=== PATIENT | female | born 1940 | race Caucasian/White ===

== ENCOUNTER 2016-11-19 15:06 | Inpatient (IN) | payer MEDICARE, OTHER ==
[~2016-11-19] VITALS: Ht 142.2 cm; Wt 84.2 kg
[~2016-11-19 15:06] MED LIST: ASPI1TAB69 PO; CARV3.12 PO; CENTTAB PO; CITA20TA4 PO; CYAN1000P IM; RANI150C PO; ROSU40 PO; SENN8.8L PO; TRIA1CAP6 PO; VITA2000 PO
[2016-11-20] MEDS ORDERED: bipap FM (09:09)
--- NOTE | 2016-11-21 14:54 | MH ---
cc: Bon HOSKINS M.D. DATE OF ADMISSION: 11/24/2016 ADMITTING DIAGNOSIS Osteoarthritic degeneration right hip, now being admitted for right total hip arthroplasty. HISTORY OF PRESENT ILLNESS This pleasant, morbidly obese 76-year-old female is being admitted today for right total hip arthroplasty due to severe painful osteoarthritic degeneration right hip. PAST MEDICAL HISTORY 1. She has already had a left total knee done and did well. 2. History of morbid obesity for which she underwent bariatric surgery and lost over 100 pounds. 3. History of depression. 4. Hypertension. 5. Back pain. 6. Sleep apnea. MEDICATIONS Current medications include: 1. Ranitidine. 2. Triamterene. 3. Crestor. 4. Centrum Silver. 5. Carvedilol. 6. Citalopram. 7. . 8. Baby aspirin, stopped before surgery. 9. Cyanocobalamin. PAST SURGICAL HISTORY 1. Cataract surgery. 2. Knee surgery. 3. Carpal tunnel surgery. 4. D&C. 5. Gastric bypass. REVIEW OF SYSTEMS Noncontributory. FAMILY HISTORY Noncontributory. SOCIAL HISTORY She does not smoke or drink. ALLERGIES LATEX. PHYSICAL EXAMINATION GENERAL: We find a 76-year-old female well-developed, well-nourished, oriented x3, complaining of pain in her right hip. VITAL SIGNS: Blood pressure 151/71, pulse 60 and regular, respirations 22, temperature 97.9. Pulse oximetry 96% on room air. HEENT: PERRLA. EOMI. Ears, nose and mouth clear. NECK: Supple. LUNGS: Clear. HEART: Regular rate. ABDOMEN: Soft. Positive bowel sounds. Nontender. EXTREMITIES: The right hip has decreased range of motion. Neurovascularly intact to her toes. She has slight shortening of the right lower extremity compared to the left. IMPRESSION The impression at this time is severe painful osteoarthritic degeneration, right hip. PLAN Admission for right total hip arthroplasty today. The patient was given a prescription for postoperative pain control in the office. She understands to use Hibiclens scrub and Bactroban preoperatively and plans on going to a rehab center postoperatively for continuation of care. J. MD BLANCA Cee/AMAN /2:30 PM /2:40 PM
[2016-11-24] MEDS ORDERED: CYANOCOBALAMIN 1000 MCG/ML VIAL IM SCH (08:30)
[2016-11-24] MEDS ORDERED: BISACODYL 10 MG SUPP PR PRN (08:30)
[2016-11-24] MEDS ORDERED: TEMAZEPAM 15 MG CAP PO PRN (08:30)
[2016-11-24] MEDS ORDERED: Post-op Orders (for Pharmacy) MISC XX ONE (08:30)
[2016-11-24] MEDS ORDERED: MISCELLANEOUS NURSING INFORMATION XX PRN (08:30)
[2016-11-24] MEDS ORDERED: ACETAMINOPHEN/HYDROcodone 325 MG/7.5 MG TAB PO PRN (08:30)
[2016-11-24] MEDS ORDERED: SODIUM CHLORIDE 0.9% FLUSH 5 ML FLUSH IVF PRN (08:30)
[2016-11-24] MEDS ORDERED: TRANEXAMIC ACID INJ 0 MG in SODIUM CHLORIDE 0.9% INJ 100 ML IV SCH (08:30)
[2016-11-24] MEDS ORDERED: MORPHINE SULFATE 30 MG/30 ML PCA IV SCH (08:30)
[2016-11-24] MEDS ORDERED: SENNOSIDES SYRUP 8.8 MG/5 ML CUP PO PRN (08:30)
[2016-11-24] MEDS ORDERED: ACETAMINOPHEN 325 MG TAB PO PRN (08:30)
[2016-11-24] MEDS ORDERED: MAGNESIUM HYDROXIDE SUSP 30 ML CUP PO PRN (08:30)
[2016-11-24] MEDS ORDERED: ONDANSETRON HCL 4 MG/2 ML VIAL IVP PRN (08:30)
[2016-11-24] MEDS ORDERED: MORPHINE SULFATE 8 MG/ML INJ IV PUSH PRN (08:30)
[2016-11-24] MEDS ORDERED: NALOXONE HCL 0.4 MG/ML AMP IV PRN (08:30)
[2016-11-24] MEDS ORDERED: METOPROLOL TARTRATE 25 MG TAB PO PRN (08:45)
[2016-11-24] MEDS: TRANEXAMIC ACID INJ 795 MG in SODIUM CHLORIDE 0.9% INJ 100 ML IV SCH ×2 (08:45→13:39)
[2016-11-24] MEDS ORDERED: ceFAZolin 2 GM PREMIX 50 ML IV SCH (08:45)
[2016-11-24] MEDS: CHLORHEXIDINE GLUCONATE 4% SOLN 120 ML BTL TOP SCH (08:45)
[2016-11-24] MEDS ORDERED: VANCOMYCIN 1000 MG/NS 250 ML (for <70 kg) IV SCH ×2 (08:45)
[2016-11-24] MEDS ORDERED: INSULIN HUMAN REGULAR 1,000 UNITS/10 ML VIAL SQ PRN (08:45)
[2016-11-24] MEDS: SODIUM CHLORID 0.9% 500 ML IV SCH (08:45)
[2016-11-24] MEDS: LACTATED RINGER'S 1000 ML IV SCH (08:50)
[2016-11-24 08:58] VITALS: BP 129/59; PULSE 50; RESP 18; TEMP 97.9; O2SAT 100
[2016-11-24] MEDS: ASPIRIN EC 81 MG TABEC PO SCH (09:00)
[2016-11-24] MEDS ORDERED: MULTIVITAMIN HEMATINIC THERAPEUTIC TAB PO SCH (09:00)
[2016-11-24] MEDS: CHOLECALCIFEROL (VIT D3) 1000 UNIT TAB PO SCH (09:00)
[2016-11-24] MEDS ORDERED: NON-FORMULARY DRUG (Rosuvastatin (Crestor) 40 MG) PO SCH (09:00)
[2016-11-24] MEDS: SODIUM CHLORIDE 0.9% FLUSH 5 ML FLUSH IVF SCH ×2 (09:00→20:31)
[2016-11-24] MEDS: CITALOPRAM HYDROBROMIDE 20 MG TAB PO SCH (09:00)
[2016-11-24] MEDS ORDERED: TRIAMTERENE PO SCH (09:00)
--- NOTE | 2016-11-24 10:10 | PD.CONS ---
History of Present Illness Service Family Practice Residency Consult Requested By Dr. Lonoey Reason for Consult Medical Management Primary Care Physician Erica Rees MD Diagnoses: History of Present Illness Patient is a 76yo female with PMH significant for afib, HTN, and sleep apnea. Presented today in same day surgery for Right hip arthroplasty due to OA degeneration. Patient otherwise feels well has has not complaints. States that she would not be in the hospital if it was not for her surgery today. ROS x10 negative Review of Systems Other ROS x10 negative Past Family Social History Allergies: Coded Allergies: Latex (Verified Allergy, Mild, Itching, 11/24/16) Past Medical History HTN GERD Obesity Osteoarthritis Hip avascular necrosis Chronic back pain Atrial fibrillation- failed Eliquis due to vaginal bleeding Osteopenia HLD Stress incontinence Depression Insomnia JOZEF (wears CPAP) Past Surgical History Carpal tunnel surgery bilaterally (Lx 2, Rx1) R and L total knee replacement Cataract surgery Gastric sleeve surgery 11/07/15 D&C for miscarriage Reported Medications Reported Meds & Active Scripts Active Reported Cyanocobalamin Inj (Cyanocobalamin) 1,000 Mcg/Ml Inj 1,000 Mcg IM Q30D Vitamin D3 (Cholecalciferol) 2,000 Unit Cap 2,000 Units PO DAILY Aspirin 81 Mg Tabdr 81 Mg PO DAILY Citalopram (Citalopram Hydrobromide) 20 Mg Tab 20 Mg PO DAILY Carvedilol 3.125 Mg Tab 3.125 Mg PO BID Crestor (Rosuvastatin Calcium) 40 Mg Tab 40 Mg PO DAILY Dyrenium (Triamterene) 50 Mg Cap 18.75 Mg PO DAILY Ranitidine (Ranitidine HCl) 150 Mg Cap 150 Mg PO BID Centrum Silver (Multiple Vitamins W/ Minerals) 1 Tab 1 Tab PO DAILY Family History Father: , heart attack Mother: at 87, DM, breast cancer in 60s Maternal GM with h/o breast cancer but due to "old age" Social History Lives with daughter EtOH: social--holidays Tobacco: denies. Quit smoking in her 40's (used to smoke socially for 20 yrs) Illicit drugs: denies Physical Exam Vital Signs Vital Signs Date Time Temp Pulse Resp B/P Pulse Ox O2 Delivery O2 Flow Rate FiO2 11/24/16 08:58 97.9 50 18 129/59 100 Physical Exam GENERAL: This is a well-nourished, well-developed patient, in no apparent distress. SKIN: No rashes, ecchymoses or lesions. Cool and dry. EYES: Pupils equal round and reactive. Extraocular motions intact. No scleral icterus. No injection or drainage. ENT: Nose without bleeding, purulent drainag. Throat without erythema, tonsillar hypertrophy or exudate. Uvula midline. Airway patent. NECK: No lymphadenopathy. CARDIOVASCULAR: Regular rate and rhythm without murmurs, gallops, or rubs. RESPIRATORY: Clear to auscultation. Breath sounds equal bilaterally. No wheezes , rales, or rhonchi. GASTROINTESTINAL: Abdomen soft, non-tender, nondistended. No hepato-splenomegaly , or palpable masses. No guarding. MUSCULOSKELETAL: Extremities without clubbing, cyanosis, or edema. No calf tenderness. Tenderness to palpation of right hip. NEUROLOGICAL: Awake and alert. Motor and sensory grossly within normal limits. Normal speech. Assessment and Plan Problem List: (1) Status post total hip replacement, right Status: Acute Plan: Undergoing right hip arthroplasty 11/24/16, patient seen prior to operation. Currently asymptomatic. -Defer treatment per orthopedics (2) Atrial fibrillation Status: Chronic Plan: History of atrial fibrillation that is currently rate controlled with carvedilol. Patient was previously on Eliquis but did have vaginal bleeding while on it. Is currently on aspirin but per chart review, she is aware that this is inadequate anticoagulation. Doctor Of Nurse Anesthesia Practice is Dr. Swanson -HAS-BLED bleeding risk: Intermediate -agree with continued home medications (carvedilol 3.125mg BID daily, aspirin 81mg) (3) JOZEF on CPAP Status: Chronic Plan: Pt to bring in home CPAP. If unavailable, will order Bipap in hospital until home device arrives. (4) Hyperlipidemia Status: Chronic Plan: Agreed with continued Crestor (5) HTN (hypertension) Status: Chronic Plan: Continue Triamteren -Vasotec PRN (6) Nutrition, metabolism, and development symptoms Status: Acute Plan: Diet: Regular after surgery Fluids: per surgery/PACU protocol Electrolytes: monitor s/p surgery DVT PPX: SCDs GI PPX: continued home ranitidine Remaining Chronic conditions: * discontinued B12 as patient received injection on 11/23/16 * Vit D continued * Continue Citalopram for Depression Assessment and Plan 76yo female with PMH significant for afib, HTN, and sleep apnea. Admitted for right hip arthroplasty with surgery planned for today, 11/24/16. Consulted for medical management. Currently stable. Is at intermediate risk for bleeding but is at an increased risk for thromboembolic event due to inadequate anticoagulation in the setting of atrial fibrillation. Please see notes above for treatment plan. Elisha Arrieta MD R2 Nov 24, 2016 10:10
[2016-11-24] MEDS ORDERED: ENALAPRILAT 1.25 MG/ML VIAL IV PRN (10:30)
[2016-11-24] MEDS: BUPIVACAINE LIPOSO PF 1.3% INJ 20 ML, BUPIVACAINE PF 0.25% INJ 20 ML in SODIUM CHLORIDE... P-ARTICULR SCH ×2 (11:00→14:22)
[2016-11-24] MEDS ORDERED: ONDANSETRON HCL 4 MG/2 ML VIAL IV PUSH ONE (11:10)
[2016-11-24] MEDS ORDERED: PROPOFOL 200 MG/20 ML AMP IV ONE (11:10)
[2016-11-24] MEDS ORDERED: ePHEDrine/NS 50 MG/5 ML SYR IV ONE (11:10)
[2016-11-24] MEDS ORDERED: PARENTERAL ELECTROLYTES PH 7.4 1000 ML BAG IV ONE (11:10)
[2016-11-24] MEDS ORDERED: PHENYLEPH/NS 1000 MCG/10 ML SYR IV ONE (11:10)
[2016-11-24] MEDS ORDERED: NEOSTIGMINE 3 MG/3 ML SYR IV ONE (11:10)
[2016-11-24] MEDS ORDERED: LACTATED RINGER'S 1000 ML INJ 1,000 ML IV ONE (11:10)
[2016-11-24] MEDS ORDERED: TRANEXAMIC ACID INJ 795 MG in SODIUM CHLORIDE 0.9% INJ 100 ML IV SCH (12:00)
[2016-11-24] MEDS ORDERED: ACETAMINOPHEN 1000 MG/100 ML VIAL IV ONE (12:59)
[2016-11-24] MEDS ORDERED: ceFAZolin INJ 1,000 MG VIAL ONE (13:07)
[2016-11-24] MEDS ORDERED: MIDAZOLAM HCL 2 MG/2 ML VIAL ONE ×2 (13:17→17:19)
[2016-11-24] MEDS ORDERED: FAMOTIDINE 20 MG/2 ML VIAL ONE (13:17)
[2016-11-24] MEDS ORDERED: DEXAMETHASONE SOD PHOS 4 MG/ML VIAL ONE (13:18)
[2016-11-24] MEDS: PCA - TOTAL MG MORPHINE DELIVERED PER SHIFT SCH ×2 (14:00→22:00)
[2016-11-24] MEDS ORDERED: MORPHINE SULFATE 30 MG/30 ML PCA ONE (16:27)
[2016-11-24] MEDS ORDERED: fentaNYL CITRATE 250 MCG/5 ML AMP ONE (17:19)
[2016-11-24] MEDS ORDERED: MORPHINE SULFATE 4 MG/ML INJ ONE (17:20)
[2016-11-24] MEDS ORDERED: DO NOT ADM ANY ANTICOAGULANT DRUGS XX PRN (17:30)
[2016-11-24] MEDS: LACTATED RINGER'S 1000 ML INJ 1,000 ML IV SCH ×2 (17:30→20:31)
--- NOTE | 2016-11-24 17:50 | RADRPT ---
EXAM DATE/TIME: 11/24/2016 17:30 [facility] COMPARISON: No previous studies available for comparison. INDICATIONS : Post op right hip. MEDICAL HISTORY : Arthritis. SURGICAL HISTORY : Right hip replacement. ENCOUNTER: Initial ACUITY: 1 day PAIN SCORE: Non-responsive. LOCATION: Right hip FINDINGS: The patient is status post a total hip arthroplasty with a bipolar prosthesis. Prosthesis is well-sea sharon. Alignment is anatomic. A fracture is not appreciated. CONCLUSION: Anatomic alignment. Richy Jackson MD FACR Board Certified Radiologist. This report was verified electronically.
[2016-11-24 20:15] VITALS: BP 137/63; PULSE 58; RESP 17; TEMP 96.6; O2SAT 100
[2016-11-24] MEDS: FAMOTIDINE 20 MG TAB PO SCH (20:31)
[2016-11-24] MEDS: CARVEDILOL 3.125 MG TAB PO SCH (20:31)
[2016-11-25 00:05] VITALS: BP 101/53; PULSE 65; RESP 18; TEMP 96.4; O2SAT 96
[2016-11-25] MEDS: SODIUM CHLORID 0.9% 500 ML IV SCH (01:24)
[2016-11-25 04:05] VITALS: BP 99/50; PULSE 71; RESP 17; TEMP 97.3; O2SAT 99
[2016-11-25 05:22] LABS: HEMATOCRIT 25.4 % (35.0-46.0); REVIEW FLAG FINAL
[2016-11-25] MEDS: PCA - TOTAL MG MORPHINE DELIVERED PER SHIFT SCH (05:49)
[2016-11-25 07:39] VITALS: BP 97/47; PULSE 73; RESP 16; TEMP 97.2; O2SAT 99
[2016-11-25] MEDS: LACTATED RINGER'S 1000 ML IV SCH (08:45)
[2016-11-25] MEDS: CHLORHEXIDINE GLUCONATE 4% SOLN 120 ML BTL TOP SCH (08:45)
[2016-11-25] MEDS: ASPIRIN EC 81 MG TABEC PO SCH ×2 (09:23→09:27)
[2016-11-25] MEDS: CHOLECALCIFEROL (VIT D3) 1000 UNIT TAB PO SCH (09:23)
[2016-11-25] MEDS: CITALOPRAM HYDROBROMIDE 20 MG TAB PO SCH (09:23)
[2016-11-25] MEDS: ATORVASTATIN 80 MG TAB PO SCH (09:23)
[2016-11-25] MEDS: CARVEDILOL 3.125 MG TAB PO SCH ×2 (09:24→20:10)
[2016-11-25] MEDS: SODIUM CHLORIDE 0.9% FLUSH 5 ML FLUSH IVF SCH ×2 (09:24→20:11)
[2016-11-25] MEDS: FAMOTIDINE 20 MG TAB PO SCH ×2 (09:24→20:10)
[2016-11-25] MEDS: LACTATED RINGER'S 1000 ML INJ 1,000 ML IV SCH ×2 (09:25→21:54)
--- NOTE | 2016-11-25 10:36 | PD.ORT.PN ---
Subjective Subjective Remarks pt comfortable today. No complaints except she's anxious about her low blood pressure. Objective Vitals Vital Signs Date Time Temp Pulse Resp B/P Pulse Ox O2 Delivery O2 Flow Rate FiO2 11/25/16 07:39 97.2 73 16 97/47 99 11/25/16 05:49 20 11/25/16 04:05 97.3 71 17 99/50 99 11/25/16 00:05 96.4 65 18 101/53 96 11/24/16 22:00 20 11/24/16 20:15 96.6 58 17 137/63 100 11/24/16 19:15 97.5 53 14 111/50 98 Nasal Cannula 2 11/24/16 19:00 54 16 113/38 99 Nasal Cannula 2 11/24/16 19:00 60 14 124/50 98 Nasal Cannula 2 11/24/16 18:45 51 15 113/50 99 Nasal Cannula 2 11/24/16 18:30 50 15 116/53 99 Nasal Cannula 3 11/24/16 18:15 56 15 114/53 99 Nasal Cannula 3 11/24/16 18:06 15 11/24/16 18:00 50 15 126/50 99 Nasal Cannula 3 11/24/16 17:45 51 15 116/50 99 Nasal Cannula 3 11/24/16 17:30 56 15 135/48 99 Nasal Cannula 3 11/24/16 17:13 97.9 77 15 126/59 100 Nasal Cannula 3 I/O 11/24/16 11/24/16 11/24/16 11/25/16 11/25/16 11/25/16 07:00 15:00 23:00 07:00 15:00 23:00 Intake Total 3457 ml 897 ml Output Total 1450 ml 300 ml Balance 2007 ml 597 ml Intake Oral 300 ml 120 ml IV Total 257 ml 777 ml Other 2900 ml Output Urine Total 950 ml 300 ml Estimated Blood Loss 500 ml # Bowel Movements 0 0 Result Diagram: 11/25/16 0444 Objective Remarks Dressing dry and intact. NV intact to toes. No calf tenderness. Assessment & Plan Ortho Post Op Day #: 1 Problem List: Assessment and Plan OOB, PT, wound care, DC MUSIC PUBLICIST and Yang. Medical management for BP control. Bon Looney MD Nov 25, 2016 10:36
[2016-11-25 11:33] VITALS: BP 98/51; PULSE 71; RESP 17; TEMP 98.8; O2SAT 94
--- NOTE | 2016-11-25 12:20 | PD.CONS ---
History of Present Illness Service Orthopedics Consult Requested By Dr Looney Reason for Consult Medical Management Primary Care Physician Erica Rees MD Diagnoses: History of Present Illness Ms Durant is a 76yo female with PMH significant for afib, HTN, and sleep apnea. Presented in same day surgery for Right hip arthroplasty due to OA degeneration. Patient otherwise feels well, has has not complaints. States that she would not be in the hospital if it was not for her surgery. ROS x10 negative This am she has had some low BPs but this seems to be her norm. She feels well otherwise and only complained about feeling transient dizziness this am. Her bandage is clean and dry and there is no sign of bleeding or other issues this am. Review of Systems Other ROS x10 negative Past Family Social History Allergies: Coded Allergies: Latex (Verified Allergy, Mild, Itching, 11/24/16) Past Medical History HTN GERD Obesity Osteoarthritis Hip avascular necrosis Chronic back pain Atrial fibrillation- failed Eliquis due to vaginal bleeding Osteopenia HLD Stress incontinence Depression Insomnia JOZEF (wears CPAP) Past Surgical History Carpal tunnel surgery bilaterally (Lx 2, Rx1) R and L total knee replacement Cataract surgery Gastric sleeve surgery 11/07/15 D&C for miscarriage Reported Medications Active Reported Cyanocobalamin Inj (Cyanocobalamin) 1,000 Mcg/Ml Inj 1,000 Mcg IM Q30D Vitamin D3 (Cholecalciferol) 2,000 Unit Cap 2,000 Units PO DAILY Aspirin 81 Mg Tabdr 81 Mg PO DAILY Citalopram (Citalopram Hydrobromide) 20 Mg Tab 20 Mg PO DAILY Carvedilol 3.125 Mg Tab 3.125 Mg PO BID Crestor (Rosuvastatin Calcium) 40 Mg Tab 40 Mg PO DAILY Dyrenium (Triamterene) 50 Mg Cap 18.75 Mg PO DAILY Ranitidine (Ranitidine HCl) 150 Mg Cap 150 Mg PO BID Centrum Silver (Multiple Vitamins W/ Minerals) 1 Tab 1 Tab PO DAILY Family History Father: , heart attack Mother: at 87, DM, breast cancer in 60s Maternal GM with h/o breast cancer but due to "old age" Social History Lives with daughter EtOH: social--holidays Tobacco: denies. Quit smoking in her 40's (used to smoke socially for 20 yrs) Illicit drugs: denies Physical Exam Vital Signs Vital Signs Date Time Temp Pulse Resp B/P Pulse Ox O2 Delivery O2 Flow Rate FiO2 11/25/16 11:33 98.8 71 17 98/51 94 11/25/16 09:24 99 Nasal Cannula 2.00 11/25/16 07:39 97.2 73 16 97/47 99 11/25/16 05:49 20 11/25/16 04:05 97.3 71 17 99/50 99 11/25/16 00:05 96.4 65 18 101/53 96 11/24/16 22:00 20 11/24/16 20:15 96.6 58 17 137/63 100 11/24/16 19:15 97.5 53 14 111/50 98 Nasal Cannula 2 11/24/16 19:00 54 16 113/38 99 Nasal Cannula 2 11/24/16 19:00 60 14 124/50 98 Nasal Cannula 2 11/24/16 18:45 51 15 113/50 99 Nasal Cannula 2 11/24/16 18:30 50 15 116/53 99 Nasal Cannula 3 11/24/16 18:15 56 15 114/53 99 Nasal Cannula 3 11/24/16 18:06 15 11/24/16 18:00 50 15 126/50 99 Nasal Cannula 3 11/24/16 17:45 51 15 116/50 99 Nasal Cannula 3 11/24/16 17:30 56 15 135/48 99 Nasal Cannula 3 11/24/16 17:13 97.9 77 15 126/59 100 Nasal Cannula 3 Physical Exam GENERAL: This is a well-nourished, well-developed patient, in no apparent distress. Pain well controlled and sitting up in bed SKIN: No rashes, ecchymoses or lesions. Cool and dry. EYES: Pupils equal round and reactive. Extraocular motions intact. No scleral icterus. No injection or drainage. ENT: Nose without bleeding, purulent drainage. Airway patent. NECK: No lymphadenopathy. CARDIOVASCULAR: Regular rate and rhythm without murmurs, gallops, or rubs. RESPIRATORY: Clear to auscultation. Breath sounds equal bilaterally. No wheezes , rales, or rhonchi. GASTROINTESTINAL: Abdomen soft, non-tender, nondistended. No hepato-splenomegaly , or palpable masses. No guarding. MUSCULOSKELETAL: Extremities without clubbing, cyanosis, or edema. No calf tenderness. right hip with clean and dry bandage. NEUROLOGICAL: Awake and alert. Motor and sensory grossly within normal limits. Normal speech. Laboratory Laboratory Tests Test 11/25/16 04:44 Hemoglobin 8.7 Hematocrit 25.4 Result Diagram: 11/25/16 0444 Assessment and Plan Assessment and Plan (1) Status post total hip replacement, right Status: Acute Plan: hip arthroplasty 11/24/16, patient seen this am. Currently asymptomatic. -Defer treatment per orthopedics, doing well this am (2) Atrial fibrillation Status: Chronic Plan: History of atrial fibrillation that is currently rate controlled with carvedilol. Patient was previously on Eliquis but did have vaginal bleeding while on it. Is currently on aspirin but per chart review, she is aware that this is inadequate anticoagulation. Youth Officer is Dr. Swanson -HAS-BLESiva bleeding risk: Intermediate -agree with continued home medications (carvedilol 3.125mg BID daily, aspirin 81mg) she will have anticoagulation as recommended by Ortho (3) JOZEF on CPAP Status: Chronic Plan: Pt to bring in home CPAP. If unavailable, will order Bipap in hospital until home device arrives. (4) Hyperlipidemia Status: Chronic Plan: Agreed with continued Crestor (5) HTN (hypertension) Status: Chronic, low at this time Plan: hold Triamterene for now will hold all BP meds except she will need coreg for rate control -Vasotec PRN (6) Nutrition, metabolism, and development symptoms Status: Acute Plan: Diet: Regular after surgery Fluids: per surgery/PACU protocol Electrolytes: monitor s/p surgery DVT PPX: SCDs GI PPX: continued home ranitidine Remaining Chronic conditions: * discontinued B12 as patient received injection on 11/23/16 * Vit D continued * Continue Citalopram for Depression Assessment and Plan 76yo female with PMH significant for afib, HTN, and sleep apnea. Admitted for right hip arthroplasty with 11/24/16. Consulted for medical management. Currently stable. Is at intermediate risk for bleeding but is at an increased risk for thromboembolic event due to inadequate anticoagulation in the setting of atrial fibrillation. Please see notes above for treatment plan. doing well post op Jeri Chirinos MD Nov 25, 2016 12:20
[2016-11-25] MEDS: ACETAMINOPHEN/HYDROcodone 325 MG/7.5 MG TAB PO PRN ×3 (13:06→21:55)
[2016-11-25 15:26] VITALS: BP 96/55; PULSE 72; RESP 17; TEMP 98.1; O2SAT 94
[2016-11-25] MEDS: ENOXAPARIN SODIUM 30 MG/0.3 ML SYRINGE SQ SCH (15:39)
[2016-11-25 20:00] VITALS: BP 103/49; PULSE 82; RESP 16; TEMP 98.7; O2SAT 94
[2016-11-25] MEDS: MULTIVITAMINS/MINERALS THERAPEUTIC TAB PO SCH (20:09)
[2016-11-25] MEDS: DOCUSATE SODIUM 100 MG CAP PO SCH (20:10)
[2016-11-25] MEDS ORDERED: SODIUM CHLORID 0.9% 500 ML INJ 500 ML IV ONE (21:30)
[2016-11-26] VITALS: BP 122/58; PULSE 74; RESP 16; TEMP 98.8; O2SAT 97
[2016-11-26] MEDS: ENOXAPARIN SODIUM 30 MG/0.3 ML SYRINGE SQ SCH (02:27)
[2016-11-26] MEDS: ACETAMINOPHEN/HYDROcodone 325 MG/7.5 MG TAB PO PRN ×3 (02:27→10:18)
[2016-11-26 04:00] VITALS: BP 107/50; PULSE 78; RESP 16; TEMP 98.9; O2SAT 96
[2016-11-26 06:57] LABS: HEMATOCRIT 22.3 % (35.0-46.0); REVIEW FLAG FINAL
[2016-11-26 08:00] VITALS: BP 109/51; PULSE 79; RESP 16; TEMP 98.4; O2SAT 97
[2016-11-26] MEDS ORDERED: ACETAMINOPHEN 325 MG TAB PO PRN (08:15)
[2016-11-26] MEDS ORDERED: SODIUM CHLOR 0.9% 250 ML INJ 250 ML IV ONE (08:15)
--- NOTE | 2016-11-26 08:24 | PD.ORT.PN ---
Subjective Subjective Remarks pt painful today and dizzy. Objective Vitals Vital Signs Date Time Temp Pulse Resp B/P Pulse Ox O2 Delivery O2 Flow Rate FiO2 11/26/16 04:00 98.9 78 16 107/50 96 11/26/16 00:00 98.8 74 16 122/58 97 11/25/16 21:00 99 Room Air 11/25/16 20:00 98.7 82 16 103/49 94 11/25/16 15:26 98.1 72 17 96/55 94 11/25/16 11:33 98.8 71 17 98/51 94 11/25/16 09:24 99 Nasal Cannula 2.00 I/O 11/25/16 11/25/16 11/25/16 11/26/16 11/26/16 11/26/16 07:00 15:00 23:00 07:00 15:00 23:00 Intake Total 897 ml 240 ml 2000 ml 2230 ml Output Total 300 ml 300 ml Balance 597 ml -60 ml 2000 ml 2230 ml Intake Oral 120 ml 240 ml 240 ml 240 ml IV Total 777 ml 1760 ml 1990 ml Output Urine Total 300 ml 300 ml # Voids 1 2 # Bowel Movements 0 0 0 0 Result Diagram: 11/26/16 0544 Objective Remarks Dressing dry and intact. NV intact to toes. No calf tenderness. Assessment & Plan Ortho Post Op Day #: 2 Problem List: Assessment and Plan OOB, PT, wound care, 2 units PC today. Rehab soon. Bon Looney MD Nov 26, 2016 08:24
[2016-11-26] MEDS: DOCUSATE SODIUM 100 MG CAP PO SCH (08:32)
[2016-11-26] MEDS: ATORVASTATIN 80 MG TAB PO SCH (08:32)
[2016-11-26] MEDS: MULTIVITAMINS/MINERALS THERAPEUTIC TAB PO SCH (08:32)
[2016-11-26] MEDS: CHOLECALCIFEROL (VIT D3) 1000 UNIT TAB PO SCH (08:33)
[2016-11-26] MEDS: CITALOPRAM HYDROBROMIDE 20 MG TAB PO SCH (08:33)
[2016-11-26] MEDS: CARVEDILOL 3.125 MG TAB PO SCH (08:33)
[2016-11-26] MEDS: ASPIRIN EC 81 MG TABEC PO SCH (08:34)
[2016-11-26] MEDS: FAMOTIDINE 20 MG TAB PO SCH (08:41)
--- NOTE | 2016-11-26 08:51 | HHI.FPPN ---
Subjective Remarks Patient seen this morning. Did become dizzy with MAP in the 60s overnight. She did receive a 500 cc bolus, which she states helped a little. She still has MAP in the 60s this morning. Other vitals are essentially WNL. No tachycardia. Her main complaint this morning is of continued dizziness and weakness after surgery. She still has pain at surgery site, but this has been well controlled with PO pain medication. Plans to work with PT today. Missed yesterday because of low blood pressure. Denies any CP or SOB. Objective Vitals Vital Signs Date Time Temp Pulse Resp B/P Pulse Ox O2 Delivery O2 Flow Rate FiO2 11/26/16 04:00 98.9 78 16 107/50 96 11/26/16 00:00 98.8 74 16 122/58 97 11/25/16 21:00 99 Room Air 11/25/16 20:00 98.7 82 16 103/49 94 11/25/16 15:26 98.1 72 17 96/55 94 11/25/16 11:33 98.8 71 17 98/51 94 11/25/16 09:24 99 Nasal Cannula 2.00 I/O 11/25/16 11/25/16 11/25/16 11/26/16 11/26/16 11/26/16 07:00 15:00 23:00 07:00 15:00 23:00 Intake Total 897 ml 240 ml 2000 ml 2230 ml Output Total 300 ml 300 ml Balance 597 ml -60 ml 2000 ml 2230 ml Intake Oral 120 ml 240 ml 240 ml 240 ml IV Total 777 ml 1760 ml 1990 ml Output Urine Total 300 ml 300 ml # Voids 1 2 # Bowel Movements 0 0 0 0 Result Diagram: 11/26/16 0544 Objective Remarks GENERAL: This is a well-nourished, well-developed patient, in no apparent distress. Pain well controlled and sitting up in chair this AM. SKIN: No rashes, ecchymoses or lesions. Cool and dry. Wound site over right hip c/d/i with dressing in place. CARDIOVASCULAR: Regular rate and rhythm without murmurs, gallops, or rubs. +2 peripheral pulses. RESPIRATORY: Clear to auscultation. Breath sounds equal bilaterally. No wheezes , rales, or rhonchi. GASTROINTESTINAL: Abdomen soft, non-tender, nondistended. No hepato-splenomegaly , or palpable masses. No guarding. MUSCULOSKELETAL: Extremities without clubbing, cyanosis, or edema. No calf tenderness. NEUROLOGICAL: Awake and alert. Motor and sensory grossly within normal limits. Normal speech. A/P Assessment and Plan 76 year old female s/p right hip replacement POD #2. Now c/o worsening dizziness and weakness with low BPs and Hb trending down. Discharge Planning Likely DC to rehab tomorrow. Blood transfusion today. Will discuss with Dr. Chirinos. Problem List: (1) Status post total hip replacement, right Status: Acute Plan: S/p Right hip replacement, POD #2. Recovering well, though does have dizziness and low BPs. Hb trending down to 7s today from the 8s yesterday. -order 2u pRBC at this time given dizziness with down-trending Hb. Check CBC tomorrow. -cont lovenox, per ortho. HAS-BLED bleeding risk intermediate. Has history of vaginal bleeding on Eliquis. -cont PT. Plan for DC to rehab. (2) Atrial fibrillation Status: Chronic Plan: Regular rhythm today. Rate well controlled. -cont carvedilol (hold for SBP <90) -anticoagulation, as above (3) JOZEF on CPAP Status: Chronic Plan: History of JOZEF. -patient attempting to bring in home CPAP. Will put in order for BIPAP if unable to provide this. (4) Hyperlipidemia Status: Chronic Plan: Cont home atrovastatin. (5) HTN (hypertension) Status: Chronic Plan: Low BPs since admission. May be 2/2 blood loss v anesthesia effect. -cont carvedilol (hold for SBP <90) (6) Nutrition, metabolism, and development symptoms Status: Acute Plan: Diet: Regular Fluids: DC at this point. Plan for blood transfusion today. Electrolytes: monitor s/p surgery DVT PPX: Lovenox GI PPX: Jeff Rosario MD R3 Nov 26, 2016 08:51
[2016-11-26] MEDS ORDERED: PILL SPLITTER OTHER PRN (09:15)
[2016-11-26] MEDS ORDERED: ENOX30P SQ (09:54)
[2016-11-26] MEDS ORDERED: HYDR-3580 PO (09:54)
--- NOTE | 2016-11-26 09:56 | HHI.DCPOC ---
Discharge Care Plan Diagnosis: (1) Status post total hip replacement, right Goals to Promote Your Health * To prevent worsening of your condition and complications * To maintain your health at the optimal level Directions to Meet Your Goals Take your medications as prescribed Follow your dietary instruction Follow activity as directed Keep your appointments as scheduled Take your immunizations and boosters as scheduled If your symptoms worsen call your PCP, if no PCP go to Urgent Care Center or Emergency Room Smoking is Dangerous to Your Health. Avoid second hand smoke Call the 24-hour hour crisis hotline for domestic abuse at Jeff Brizuela MD R3 Nov 26, 2016 09:56
[2016-11-26 10:20] LABS: AUTOMATED NEUTROPHIL # 8.3 TH/MM3 (1.8-7.7); BASOPHIL % 0.2 % (0.0-2.0); EOSINOPHIL # 0.1 TH/MM3 (0-0.4); EOSINOPHIL % 0.9 % (0.0-4.0); HEMATOCRIT 23.3 % (35.0-46.0); HEMO FLAGS DIFF FINAL; LYMPH % 10.4 % (9.0-44.0); LYMPHOCYTE # 1.1 TH/MM3 (1.0-4.8); MEAN CELL VOLUME 87.9 FL (80.0-100.0); MEAN CORPUSCULAR HEMOGLOBIN 30.4 PG (27.0-34.0); MEAN CORPUSCULAR HGB CONC 34.6 % (32.0-36.0); NEUT % 82.5 % (16.0-70.0); PLATELET COUNT 144 TH/MM3 (150-450); RED BLOOD COUNT 2.65 MIL/MM3 (4.00-5.30); RED CELL DISTRIBUTION WIDTH 14.3 % (11.6-17.2); WHITE BLOOD COUNT 10.1 TH/MM3 (4.0-11.0)
[2016-11-26 10:44] LABS: ALKALINE PHOSPHATASE 63 U/L (45-117); ALT (GPT) 18 U/L (10-53); ANION GAP 8 MEQ/L (5-15); AST (GOT) 22 U/L (15-37); BICARBONATE 27.1 MEQ/L (21.0-32.0); BLOOD UREA NITROGEN 20 MG/DL (7-18); CHLORIDE 102 MEQ/L (98-107); GLOMERULAR FILTRATION RATE 64 ML/MIN (>89); POTASSIUM 3.2 MEQ/L (3.5-5.1); SODIUM (NA) 137 MEQ/L (136-145); TOTAL BILIRUBIN ADULT 0.6 MG/DL (0.2-1.0)
[2016-11-26] MEDS ORDERED: FAMOTIDINE 20 MG TAB PO SCH (21:00)
--- NOTE | 2016-11-27 07:27 | MP ---
cc: Bon HOSKINS M.D. DATE OF SURGERY 11/24/2016 PREOPERATIVE DIAGNOSIS Osteoarthritic degeneration right hip POSTOPERATIVE DIAGNOSIS Osteoarthritic degeneration right hip SURGERY PERFORMED Right total hip arthroplasty using Aesculap component size 52 cuff with two 24 mm screws and a 5236 E-liner, a standard #10 stem with a short size 36 ceramic head. No cement utilized. Extra hour of surgical time needed for approximation of the fatty layers as the patient was morbidly obese. SURGEON Dr. Hoskins PHOTONICS ENGINEERING TECHNICIAN CASTILLO Cabrera and medical student Lynette Blas, -3 ANESTHESIA General intubation PROCEDURE WAS FOLLOWS The patient was brought to the Operating Room, where after successful induction of spinal anesthesia was placed on the operating room table in the left lateral decubitus position. The right hip, thigh and leg were prepped and draped in the usual manner. A posterolateral approach was then utilized by making an incision over the proximal portion of the femur lateral aspect, carried across the greater trochanter, carried posterior in a curved incision toward the buttock. The incision was carried down through the subcutaneous tissue, through the fibers of the tensor fascia maral and gluteus lilia to expose the greater trochanteric bursa. This was then removed by sharp and blunt dissection. The hip was then internally rotated to expose the insertions of the short external rotators of the hip and were incised at their insertion into the greater trochanter and reflected posterior to protect the sciatic nerve. These were held with a Charnley retractor to better visualize the hip joint. The capsule was identified and removed by sharp dissection. The hip was then dislocated by internal rotation and flexion of the hip. The femoral calcar was then measured using the trial components for the appropriate length cut of the neck using an oscillating saw. After the cut was made the head was removed. The acetabulum was then approached and measured, the acetabulum reamed with the acetabular reamers. Next, the femoral calcar was approached by first inserting a canal finder followed by rigid reamers, followed by a cookie-cutter to the appropriate size, in this case being a #15. The broach was left in place and a planer used to plane the calcar to a smooth finish. The broach was then removed. The trial components were then inserted into place, the hip reduced, found to track smoothly with no evidence of subluxation or dislocation. All trial components were removed. The wound was irrigated copiously with antibiotic solution and Water-Pik. The actual components were then inserted and impacted into place using component size 52 cuff with two 24 mm screws and a 5236 E-liner, a standard #10 stem with a short size 36 ceramic head. No cement utilized. The hip was reduced, found to track smoothly with no evidence of subluxation or dislocation. The wound was irrigated copiously with antibiotic solution, meticulous hemostasis achieved. The capsule was then approximated using interrupted #1 Vicryl suture, two Hemovac's inserted. The patient is morbidly obese and took extra time, approximately one hour, for exposure through all the fatty layers and for reapproximating the fatty layers in multiple layers using 2-0 Monocryl suture. The deep fascia approximated with running #2 Quill. The sciatic nerve identified, protected throughout the procedure. The subcutaneous tissue approximated using interrupted 3-0 Monocryl suture and Steri-Strips, sterile dressing. No drain utilized. Abduction pillow, brace and knee immobilizer applied. Estimated blood loss 500 cc. Sponge and suture count correct. The patient tolerated the procedure well and left the operating room in satisfactory condition. Sciatic nerve was identified and protected throughout the procedure. J. MD BLANCA Cee/CHEPE /4:16 PM /7:06 AM ANGY
--- NOTE | 2016-11-27 10:55 | HHI.DS ---
Discharge Summary Admission Date Nov 24, 2016 at 08:05 Discharge Date: Nov 26, 2016 Admitting Diagnosis osteoarthritic degeneration right hip Diagnosis: (1) Status post total hip replacement, right Diagnosis: Principal Brief History This is a 76 year old female patient CBC/BMP: 11/26/16 0934 11/26/16 0934 Significant Findings Laboratory Tests Test 11/25/16 11/26/16 11/26/16 04:44 05:44 09:34 Hemoglobin 8.7 GM/DL 7.6 GM/DL 8.0 GM/DL (11.6-15.3) (11.6-15.3) (11.6-15.3) Hematocrit 25.4 % 22.3 % 23.3 % (35.0-46.0) (35.0-46.0) (35.0-46.0) Red Blood Count 2.65 MIL/MM3 (4.00-5.30) Platelet Count 144 TH/MM3 (150-450) Neutrophils (%) (Auto) 82.5 % (16.0-70.0) Neutrophils # (Auto) 8.3 TH/MM3 (1.8-7.7) Potassium Level 3.2 MEQ/L (3.5-5.1) Blood Urea Nitrogen 20 MG/DL (7-18) Estimat Glomerular Filtration 64 ML/MIN (>89) Rate Calcium Level 8.1 MG/DL (8.5-10.1) Total Protein 6.0 GM/DL (6.4-8.2) Albumin 2.5 GM/DL (3.4-5.0) PE at Discharge Dressing dry and intact. NV intact to toes. No calf tenderness. Hospital Course Patient was admitted on November 24 at which time she underwent a right total hip arthroplasty. Postoperatively she remained afebrile vital signs stable and neurovascularly intact here she received a course of prophylactic IV antibiotics and within 23 hours started on anticoagulation therapy. She tolerated food and fluids well and was taken off the pain pump and put on by mouth pain meds which he tolerated well. She continued to improve vital signs remained stable and she was discharged to [facility] on postoperative day in good condition with a hemoglobin 8.0 and instructions for daily wound care and physical therapy. She will continue on anticoagulation therapy as well for the next 10 days. Pt Condition on Discharge: Good Discharge Disposition: Discharge to SNF Discharge Instructions Diet Instructions: As Tolerated, No Restrictions Activities You Can Perform: Weight Bearing as Purnima Bon Looney MD Nov 27, 2016 10:55
[2016-12-09] MEDS ORDERED: CENTTAB PO (11:21)
[2016-12-09] MEDS ORDERED: CITA20TA4 PO (11:21)
[2016-12-09] MEDS ORDERED: ROSU40 PO (11:21)
[2016-12-09] MEDS ORDERED: CARV3.12 PO (11:21)
[2016-12-09] MEDS ORDERED: RANI150C PO (11:21)
[2016-12-09] MEDS ORDERED: HYDR-3580 PO (11:21)
[2016-12-09] MEDS ORDERED: ASPI1TAB69 PO (11:21)
[2016-12-09] MEDS ORDERED: VITA2000 PO (11:21)
[2016-12-09] MEDS ORDERED: ACET325T PO (11:32)
[2017-01-08] MEDS ORDERED: SULF1TAB23 PO (13:50)
[2017-02-25] MEDS ORDERED: RANI150C PO (09:26)
[2017-04-16] MEDS ORDERED: TRIA37.5 PO (16:17)
== END 2016-11-26 10:51 | DRG 470 ==
LOC: HSDI 11-24 08:05 → N06A 11-24 19:59
PROVIDERS: ADMIT Surgery; ATTEND Surgery
PROC: 0SR903A Replacement of Right Hip Joint with Ceramic Synthetic Substitute, Uncemented, Open Approach (ICD-10-PCS; principal; 2016-11-24 13:23)
DX: M16.11 Unilateral primary osteoarthritis, right hip (principal); Z68.41 Body mass index [BMI] 40.0-44.9, adult; I48.91 Unspecified atrial fibrillation; I10 Essential (primary) hypertension; E66.01 Morbid (severe) obesity due to excess calories; Z98.84 Bariatric surgery status; K21.9 Gastro-esophageal reflux disease without esophagitis; M54.9 Dorsalgia, unspecified; G89.29 Other chronic pain; M85.80 Other specified disorders of bone density and structure, unspecified site; E78.5 Hyperlipidemia, unspecified; N39.3 Stress incontinence (female) (male); G47.33 Obstructive sleep apnea (adult) (pediatric); G47.00 Insomnia, unspecified; F32.9 Major depressive disorder, single episode, unspecified; R42 Dizziness and giddiness; R53.1 Weakness; Z96.653 Presence of artificial knee joint, bilateral; Z87.891 Personal history of nicotine dependence; Z79.82 Long term (current) use of aspirin
CPT/HCPCS: 73501; 80053; 85014; 85018; 85025; 86850; 86900; 86901; 86920; 94150; C1776; C9290; J0131; J0690; J1100; J1650; J2250; J2270; J2370; J2405; J2710; J3010; J3370; J7040; J7050; J7120; L1830

== ENCOUNTER → 2016-11-20 | Outpatient (CLI) | payer MEDICARE, OTHER ==
[~2016-11-20] MED LIST changes: +ACET325T PO; +ENOX30P SQ; +HYDR-3580 PO; +SULF1TAB23 PO; +TRIA37.5 PO; +bipap FM
[2016-11-20 09:42] LABS: BLOOD, URINE NEG (NEG); GLUCOSE,URINE NEG (NEG); KETONE, URINE NEG (NEG); NITRITE,URINE NEG (NEG); PH, URINE 6.5 (5.0-8.5); SQUAMOUS EPITHELIAL CELL URINE <1 /hpf (0-5); URINE COLOR YELLOW (YELLW/STRAW)
[2016-11-20 09:45] LABS: AUTOMATED NEUTROPHIL # 3.4 TH/MM3 (1.8-7.7); BASOPHIL % 0.7 % (0.0-2.0); EOSINOPHIL # 0.3 TH/MM3 (0-0.4); HEMATOCRIT 36.9 % (35.0-46.0); HEMO FLAGS DIFF FINAL; LYMPH % 32.7 % (9.0-44.0); MEAN CELL VOLUME 87.7 FL (80.0-100.0); MEAN CORPUSCULAR HEMOGLOBIN 29.4 PG (27.0-34.0); MEAN CORPUSCULAR HGB CONC 33.6 % (32.0-36.0); MONO % 6.4 % (0.0-8.0); NEUT % 55.2 % (16.0-70.0); PLATELET COUNT 218 TH/MM3 (150-450); RED BLOOD COUNT 4.21 MIL/MM3 (4.00-5.30); RED CELL DISTRIBUTION WIDTH 13.9 % (11.6-17.2); WHITE BLOOD COUNT 6.2 TH/MM3 (4.0-11.0)
[2016-11-20 09:47] LABS: COMMENT (UR) CATH-CULT NOT IND; CULTURE IF INDICATED CATH CULTURE NOT IND
[2016-11-20 09:50] LABS: APTT (PATIENT) 27.8 SEC (24.3-30.1); PROTHROMBIN TIME - PATIENT 10.7 SEC (9.8-11.6)
[2016-11-20 10:06] LABS: ALKALINE PHOSPHATASE 80 U/L (45-117); ALT (GPT) 30 U/L (10-53); ANION GAP 10 MEQ/L (5-15); AST (GOT) 20 U/L (15-37); BICARBONATE 27.4 MEQ/L (21.0-32.0); BLOOD UREA NITROGEN 40 MG/DL (7-18); CHLORIDE 102 MEQ/L (98-107); GLOMERULAR FILTRATION RATE 59 ML/MIN (>89); GLUCOSE,FASTING 77 MG/DL (74-99); POTASSIUM 3.9 MEQ/L (3.5-5.1); SODIUM (NA) 139 MEQ/L (136-145); TOTAL BILIRUBIN ADULT 0.5 MG/DL (0.2-1.0)
--- NOTE | 2016-11-21 18:24 | EKG ---
Date Performed: 11/20/2016 Time Performed: 08:40:27 PTAGE: 76 years EKG: SINUS BRADYCARDIA WITH FIRST DEGREE AV BLOCK MINIMAL ST DEPRESSION ABNORMAL ECG PREVIOUS TRACING : 11/20/2016 08.39 Since previous tracing, no significant change noted DOCTOR: Bella Gill Interpretating Date/Time 11/21/2016 18:22:50
== END ==
LOC: CPRE 08:03
PROVIDERS: ATTEND Surgery
DX: Z01.810 Encounter for preprocedural cardiovascular examination (principal); M79.609 Pain in unspecified limb; R94.31 Abnormal electrocardiogram [ECG] [EKG]
CPT/HCPCS: 36415; 80053; 81001; 85025; 85610; 85730; 93005

== ENCOUNTER → 2017-06-05 | Outpatient (CLI) | payer MEDICARE, OTHER ==
[~2017-06-05] MED LIST changes: -CITA20TA4 PO; -ENOX30P SQ; -SENN8.8L PO; -SULF1TAB23 PO; -TRIA1CAP6 PO; -bipap FM
[2017-06-05 09:24] LABS: ANION GAP 7 MEQ/L (5-15); AST (GOT) 24 U/L (15-37); BICARBONATE 28.3 MEQ/L (21.0-32.0); BLOOD UREA NITROGEN 51 MG/DL (7-18); CHLORIDE 101 MEQ/L (98-107); GLOMERULAR FILTRATION RATE 61 ML/MIN (>89); GLUCOSE,FASTING 76 MG/DL (74-99); POTASSIUM 3.7 MEQ/L (3.5-5.1); SODIUM (NA) 136 MEQ/L (136-145)
[2017-06-05 09:25] LABS: ALT (GPT) 28 U/L (10-53)
[2017-06-05 09:27] LABS: ALKALINE PHOSPHATASE 91 U/L (45-117); TOTAL BILIRUBIN ADULT 0.4 MG/DL (0.2-1.0)
== END ==
LOC: CLAB 08:27
PROVIDERS: ATTEND Family Medicine
DX: E83.52 Hypercalcemia (principal)
CPT/HCPCS: 36415; 80053

== ENCOUNTER → 2017-06-17 | Outpatient (CLI) | payer MEDICARE, OTHER ==
[~2017-06-17] MED LIST changes: +CEPH-460 PO
--- NOTE | 2017-06-19 10:38 | RSPPFT ---
DATE OF PROCEDURE: 06/17/17 COMMENTS: VOLUMES DYNAMIC: FVC normal, FEV1 mildly reduced. STATIC: TLC, RV and FRC normal. FLOWS: FEV1% moderately reduced; FEF 25-75 moderately reduced. DIFFUSION: Normal. FLOW VOLUME LOOP: Pattern of variable intrathoracic airways obstruction. IMPRESSION: Moderate obstructive ventilator defect with no significant hyperinflation or reduction in diffusion. There is significant improvement post-bronchodilator.
== END ==
LOC: HRSP 08:34
PROVIDERS: ATTEND Internal Medicine
DX: J45.909 Unspecified asthma, uncomplicated (principal)
CPT/HCPCS: 94060; 94620; 94726; 94729; 95012

== ENCOUNTER → 2017-11-23 | Outpatient (CLI) | payer MEDICARE, OTHER ==
[~2017-11-23] MED LIST changes: -ACET325T PO; +ASPI1TAB57 PO; -ASPI1TAB69 PO; +BECL0.07 INH; +CENTCHW3 PO; -CENTTAB PO; +CLIN300C5 PO; +CLOT1CRE8 TOPICAL; +DICL1GEL7 TOPICAL; -HYDR-3580 PO; +SENE8.6T PO; +VOLT1GEL16 TOPICAL
[2017-11-23 13:49] LABS: CHOLESTEROL 197 MG/DL (120-200); DIRECT BILIRUBIN ADULT 0.1 MG/DL (0.0-0.2); TRIGLYCERIDES 64 MG/DL (42-150)
[2017-11-23 13:53] LABS: ALKALINE PHOSPHATASE 92 U/L (45-117); ALT (GPT) 25 U/L (10-53); AST (GOT) 26 U/L (15-37); BICARBONATE 28.6 MEQ/L (21.0-32.0); BLOOD UREA NITROGEN 35 MG/DL (7-18); CALCIUM 9.9 MG/DL (8.5-10.1); CHLORIDE 103 MEQ/L (98-107); CREATININE 0.99 MG/DL (0.50-1.00); GLOMERULAR FILTRATION RATE 54 ML/MIN (>89); GLUCOSE,FASTING 88 MG/DL (74-99); HDL CHOLESTEROL 67.8 MG/DL (40.0-60.0); LDL CHOLESTEROL 116 MG/DL (0-99); SODIUM (NA) 137 MEQ/L (136-145); TOTAL BILIRUBIN ADULT 0.4 MG/DL (0.2-1.0); TOTAL PROTEIN 8.7 GM/DL (6.4-8.2)
== END ==
LOC: CLAB 13:04
PROVIDERS: ATTEND Internal Medicine Interventional Cardiology
DX: R06.02 Shortness of breath (principal); E78.5 Hyperlipidemia, unspecified; Z79.899 Other long term (current) drug therapy
CPT/HCPCS: 36415; 80053; 80061; 82248; 82550

== ENCOUNTER → 2017-11-24 | Outpatient (CLI) | payer MEDICARE, MEDICAID, OTHER ==
[2017-11-24 09:30] LABS: HEMATOCRIT 39.2 % (35.0-46.0); HEMOGLOBIN 13.3 GM/DL (11.6-15.3); MEAN CELL VOLUME 89.9 FL (80.0-100.0); MEAN CORPUSCULAR HEMOGLOBIN 30.6 PG (27.0-34.0); MEAN PLATELET VOLUME 7.9 FL (7.0-11.0); PLATELET COUNT 231 TH/MM3 (150-450); RED BLOOD COUNT 4.36 MIL/MM3 (4.00-5.30); RED CELL DISTRIBUTION WIDTH 15.2 % (11.6-17.2); REVIEW FLAG FINAL; WHITE BLOOD COUNT 6.1 TH/MM3 (4.0-11.0)
[2017-11-24 09:38] LABS: APTT (PATIENT) 29.6 SEC (24.3-30.1); PROTHROMBIN TIME - PATIENT 10.2 SEC (9.8-11.6)
[2017-11-24 09:52] LABS: ALBUMIN 3.9 GM/DL (3.4-5.0); ANION GAP 6 MEQ/L (5-15); AST (GOT) 17 U/L (15-37); BICARBONATE 28.9 MEQ/L (21.0-32.0); BLOOD UREA NITROGEN 34 MG/DL (7-18); CALCIUM 9.6 MG/DL (8.5-10.1); CHLORIDE 102 MEQ/L (98-107); CREATININE 0.96 MG/DL (0.50-1.00); GLOMERULAR FILTRATION RATE 56 ML/MIN (>89); GLUCOSE,FASTING 83 MG/DL (74-99); POTASSIUM 3.3 MEQ/L (3.5-5.1); SODIUM (NA) 137 MEQ/L (136-145)
[2017-11-24 09:54] LABS: ALT (GPT) 22 U/L (10-53)
[2017-11-24 09:56] LABS: ALKALINE PHOSPHATASE 90 U/L (45-117); TOTAL BILIRUBIN ADULT 0.4 MG/DL (0.2-1.0); TOTAL PROTEIN 8.6 GM/DL (6.4-8.2)
[2017-11-24 10:16] LABS: BILIRUBIN, URINE NEG (NEG); BLOOD, URINE TRACE (NEG); GLUCOSE,URINE NEG (NEG); HYALINE CAST, URINE 1 /lpf (RARE); KETONE, URINE NEG (NEG); MUCUS URINE FEW /lpf (OCC); NITRITE,URINE NEG (NEG); URINE COLOR YELLOW (YELLW/STRAW); URINE LEUKOCYTE ESTERASE NEG (NEG)
[2017-11-24 10:17] LABS: COMMENT (UR) CATH-CULT NOT IND; CULTURE IF INDICATED CATH CULTURE NOT IND
== END ==
LOC: CPRE 08:03
DX: Z01.812 Encounter for preprocedural laboratory examination (principal); M79.609 Pain in unspecified limb
CPT/HCPCS: 36415; 80053; 81001; 85027; 85610; 85730

== ENCOUNTER 2017-12-03 05:35 | Inpatient (IN) | payer MEDICARE, MEDICAID ==
--- NOTE | 2017-11-26 14:17 | MH ---
cc: Bon HOSKINS M.D. DATE OF ADMISSION: 12/03/2017 ADMISSION DIAGNOSIS Osteoarthritic degeneration left hip, now being admitted for left total hip arthroplasty. ADMISSION HISTORY AND PHYSICAL This pleasant 77-year-old female is being admitted today for left total hip arthroplasty due to severe painful osteoarthritic degeneration left hip. OTHER PAST HISTORY 1. She has severe scoliosis. 2. Anxiety disorder. 3. Hyperlipidemia. 4. Hypertension. MEDICATIONS Current medications include: 1. Ranitidine. 2. Triamterene. 3. Hydrochlorothiazide. 4. Crestor. PREVIOUS SURGERIES 1. Knee replacement. 2. Right total hip arthroplasty. SOCIAL HISTORY She does not smoke or drink. REVIEW OF SYSTEMS Noncontributory. FAMILY HISTORY Noncontributory. ALLERGIES LATEX. PHYSICAL EXAMINATION GENERAL: We find a 77-year-old female, well-developed, well-nourished, alert and oriented x3, complaining of pain in her left hip. VITAL SIGNS: Blood pressure 118/72, pulse 72 and regular, respirations 18, temperature 98.1, pulse oximetry 97% on room air. HEENT: Eyes PERRLA, EOMI. Ears, nose, mouth clear. NECK: Supple. LUNGS: Clear. HEART: Regular rate. ABDOMEN: Soft. Positive bowel sounds. Nontender. EXTREMITIES: Reveal the left hip to have decreased range of motion, neurovascularly intact to her toes. IMPRESSION AT THIS TIME Severe painful osteoarthritic degeneration, left hip. PLAN Admission for left total hip arthroplasty today. The patient plans on going to [facility] after surgical stay in the hospital. She understands the use of Hibiclens scrub and Bactroban preoperatively. MD BLANCA Nguyen/TLL /1:48 PM /2:00 PM
[~2017-12-03] VITALS: Ht 142.2 cm; Wt 93.2 kg
[~2017-12-03 05:35] MED LIST changes: -CEPH-460 PO; -CLIN300C5 PO; -CLOT1CRE8 TOPICAL; -CYAN1000P IM; -DICL1GEL7 TOPICAL; -VOLT1GEL16 TOPICAL
[2017-12-03] MEDS ORDERED: SODIUM CHLORID 0.9% 500 ML IV PRN (06:00)
[2017-12-03] MEDS ORDERED: METOPROLOL TARTRATE 25 MG TAB PO PRN (06:00)
[2017-12-03] MEDS ORDERED: POVIDONE IODINE 5% (ANTISEPSIS KIT) 4 APPLICATIONS EACH NARE PRN (06:00)
[2017-12-03] MEDS ORDERED: CHLORHEXIDINE GLUCONATE 2 % 1 PACK (2 CLOTHS) TOPICAL PRN (06:00)
[2017-12-03] MEDS ORDERED: LACTATED RINGER'S 1000 ML IV PRN (06:00)
[2017-12-03] MEDS ORDERED: CHLORHEXIDINE GLUCONATE 4% SOLN 120 ML BTL TOPICAL SCH (06:15)
[2017-12-03] MEDS ORDERED: VANCOMYCIN 1000 MG/NS 250 ML (for <70 kg) IV SCH ×2 (06:15)
[2017-12-03] MEDS ORDERED: ceFAZolin 2 GM PREMIX 50 ML IV SCH (06:15)
[2017-12-03] MEDS ORDERED: CYAN1000P IM (06:16)
[2017-12-03] MEDS ORDERED: GENTAMICIN SULFATE 80 MG/2 ML VIAL ONE (07:34)
[2017-12-03] MEDS ORDERED: EXPAREL PERI-ARTICULAR INJECTION (TOTAL VOL. 120 ML) P-ARTICULR SCH ×2 (08:00)
[2017-12-03] MEDS ORDERED: MORPHINE SULFATE 8 MG/ML INJ IV PUSH PRN (08:00)
[2017-12-03] MEDS ORDERED: BISACODYL 10 MG SUPP RECTAL PRN (08:00)
[2017-12-03] MEDS ORDERED: TEMAZEPAM 15 MG CAP PO PRN (08:00)
[2017-12-03] MEDS ORDERED: TRANEXAMIC ACID INJ 0 MG in SODIUM CHLORIDE 0.9% INJ 100 ML IV SCH (08:00)
[2017-12-03] MEDS ORDERED: BECLOMETHASONE DIPROPIONATE 40 MCG/ACT 8.7 GM INHALER INH PRN (08:00)
[2017-12-03] MEDS ORDERED: Post-op Orders (for Pharmacy) XX ONE (08:00)
[2017-12-03] MEDS ORDERED: ONDANSETRON HCL 4 MG/2 ML VIAL IVP PRN (08:00)
[2017-12-03] MEDS ORDERED: NALOXONE HCL 0.4 MG/ML AMP IV PUSH PRN (08:00)
[2017-12-03] MEDS ORDERED: ACETAMINOPHEN 325 MG TAB PO PRN (08:00)
[2017-12-03] MEDS ORDERED: TRANEXAMIC ACID INJ 855 MG in SODIUM CHLORIDE 0.9% INJ 100 ML IV SCH ×2 (08:00→11:00)
[2017-12-03] MEDS ORDERED: MISCELLANEOUS NURSING INFORMATION XX PRN (08:00)
--- NOTE | 2017-12-03 08:02 | HHI.FF ---
Face to Face Verification Diagnosis: (1) Status post total hip replacement, left Physical Therapy Gait training Hip: Total hip, Protocol: Left, Posterior hip precautions, Abduction pillow while in bed, Progress to weight bearing Canvas Knee Splint: When in bed & 2 pillows btw thighs Nursing RN: 3 days/week x 2 weeks Dressing Changes: Do not change dressing I have seen patient Rossy Durant on 12/03/17. My clinical findings support the need for the requested home health care services because: Limited ability to care for self High risk of falls I certify that my clinical findings support that this patient is homebound because: Unsteady gait/balance Bon Looney MD Dec 03, 2017 08:02
[2017-12-03] MEDS ORDERED: ceFAZolin INJ 1,000 MG VIAL ONE ×2 (08:18→08:36)
[2017-12-03] MEDS: ASPIRIN EC 81 MG TABEC PO SCH (09:00)
[2017-12-03] MEDS ORDERED: TRIAMTERENE/HCTZ 37.5 MG/25 MG TAB PO SCH (09:00)
[2017-12-03] MEDS: CHOLECALCIFEROL (VIT D3) 1000 UNIT TAB PO SCH (09:00)
[2017-12-03] MEDS ORDERED: CARVEDILOL 3.125 MG TAB PO SCH (09:00)
[2017-12-03] MEDS ORDERED: PILL SPLITTER OTHER PRN (10:15)
[2017-12-03] MEDS ORDERED: DO NOT ADM ANY ANTICOAGULANT DRUGS PRN (11:25)
--- NOTE | 2017-12-03 11:25 | MP ---
cc: Bon LOONEY DATE OF SURGERY 12/03/2017 PREOPERATIVE DIAGNOSIS Osteoarthritic degeneration left hip. POSTOPERATIVE DIAGNOSIS Osteoarthritic degeneration left hip. SURGERY PERFORMED Left total hip arthroplasty using Aesculap components size 11 Press-Fit stem, short neck, 36-mm head with a 52 cup and one 24-mm screw and an E-liner poly. SURGEON Dr. Looney ELECTRIC METER TECHNICIAN CASTILLO Cabrera ANESTHESIA General intubation PROCEDURE WAS FOLLOWS After successful induction of anesthesia, the patient is placed on the operating room table in the supine position. The knee is prepped and draped in the usual manner. A tourniquet is inflated at the upper thigh and set to 300 mmHg pressure after exsanguination of the lower extremity. A longitudinal incision is made extending from 3 inches proximal to the superior pole of the patella, across the patella in longitudinal fashion, and down past the insertion of the tibial tubercle into the proximal tibia. The incision is carried down through subcutaneous tissue along the medial aspect of the patella and retinaculum, down through the capsule to expose the knee joint. The patella and patellar tendon are freed up enough to allow the patella to be inverted and retracted off the lateral side of the knee joint. The knee joint is left exposed. Small osteophytes are removed. All soft tissue is removed to allow proper position of the femoral and tibial cutting jig guide. The first femoral jig is then inserted along the distal end of the femur after first measuring to decide whether this is a small, medium, or large component. The notch is then drilled and the tibial cutting guide inserted into the femoral cutting guide, along with the ankle brace to allow for proper measurement of the tibial cutting surface that needed to be resected. Pins are inserted into the tibial cutting jig and femoral cutting jig to hold them in place. An oscillating saw is then used to resect the surface of the tibia. The surface of the tibia is then completely removed using sharp and blunt dissection. The anterior and posterior cuts of the femur are then made as well using an oscillating saw through the cutting guide. All guides are then removed and the varus/valgus angulation cutting guide applied to the femur for proper measurement of the proper amount of valgus. The anterior cutting guide for the femur is then inserted at the anterior femoral cuts made. Next, the first block trial is inserted into the femur to allow for proper condyle drill holes to be made which are then made followed by removal of the bone between the condyles using an oscillating saw as well as the bone removed at the most posterior surface of the condyle. After this, this guide is removed and the chamfer cuts made using the chamfer cutting guide from both anterior and posterior. Next, the femoral trial is then inserted, the tibial surface reflected anterior to expose the tibial surface and a tibial stem guide is inserted after first measuring for a standard, standard plus, large, or large plus surface to be used. After the stem is impacted the trial tibial surface is applied followed by the trial meniscal components. After full range of motion is found with the appropriate length meniscal components varying the patella is prepared by resecting the posterior aspect of the patella using an oscillating saw, inserting a trial. The trial is then removed and the cruciate cutting guide applied using the bur to cut the cruciate cuts. After cruciate cuts are made all trials are removed. The wound is irrigated copiously with antibiotic solution and Water-Pik and the actual components inserted into place using the aforementioned components. After the cement has hardened and the components are found to have full range of motion with no instability. No tourniquet was utilized throughout this case. A lateral retinacular release was necessary to allow the patella to track medially and some of it was repaired using interrupted #1 Vicryl suture. Meticulous hemostasis was achieved. 160 cc of Exparel used around the hip joint and staying away from the sciatic nerve which was identified and protected throughout the procedure. The remains of the capsule of the acetabulum was approximated using interrupted #1 Vicryl suture, deep fascia approximated using running #2 quill. The fatty layers were approximated in multiple layers using interrupted and running 2-0 and 3-0 Monocryl suture and sterile dressing with Primapore and abduction pillow splint and knee immobilizer. No drain utilized. An extra hour of surgical time was needed to dissect through the multiple fatty layers and expose the hip joint and then repair all the fatty layers. The exposure was very difficult. CASTILLO Cabrera was present during the entire procedure to include patient positioning and the procedure. The medical necessity of a nurse practitioner as a assistant center manager was indicated in this case due to the surgical complexity of the case itself. During the surgical case, the surgical services asst was working the back table while my surgical aide CASTILLO was directly assisting me. J. MD BLANCA Cee/CHEPE /10:51 AM /11:09 AM
[2017-12-03] MEDS ORDERED: *morphine SULFATE 4 MG/ML PERIprocedure ONLY ONE (11:27)
[2017-12-03] MEDS ORDERED: MIDAZOLAM HCL 2 MG/2 ML VIAL ONE (11:33)
[2017-12-03] MEDS ORDERED: *morphine SULFATE 10 MG/ML PERIprocedure ONLY ONE (11:37)
--- NOTE | 2017-12-03 11:46 | RADRPT ---
EXAM DATE/TIME: 12/03/2017 11:21 CORRECTION Corrected on: December 03, 2017; [facility] COMPARISON: No previous studies available for comparison. INDICATIONS : Post op left hip surgery. MEDICAL HISTORY : Hypertension. Gastroesophageal reflux disease. Chronic back pain. Afib. Hyperlipidemia. SURGICAL HISTORY : Total knee replacement, left. Total knee replacement, right. Carpal tunnel. D&C. Cataract. Bariatric. ENCOUNTER: Initial ACUITY: 1 day PAIN SCORE: 0/10 LOCATION: Left hip. FINDINGS: Single AP view left hip. Total hip prosthesis in place. Alignment within normal limits. No evidence o f fracture. CONCLUSION: Unremarkable postoperative appearance left total hip prosthesis. Octavio Molina MD on December 03, 2017 at 11:43 Board Certified Radiologist. This report was verified electronically. Octavio Molina MD on December 03, 2017 at 13:32 Board Certified Radiologist. This report was verified electronically.
[2017-12-03] MEDS ORDERED: HYDROmorphone HCL PF 2 MG/ML VIAL ONE (11:48)
[2017-12-03] MEDS ORDERED: ONDANSETRON HCL 4 MG/2 ML VIAL IV ONE (12:00)
[2017-12-03] MEDS ORDERED: ROCURONIUM INJ 50 MG/5 ML SYRINGE IV PUSH ONE (12:00)
[2017-12-03] MEDS ORDERED: LACTATED RINGER'S 1000 ML INJ 1,000 ML IV ONE (12:00)
[2017-12-03] MEDS ORDERED: DEXAMETHASONE SOD PHOS 4 MG/ML VIAL IV ONE (12:00)
[2017-12-03] MEDS ORDERED: NEOSTIGMINE 5 MG/5 ML SYRINGE IV PUSH ONE (12:00)
[2017-12-03] MEDS ORDERED: PHENYLEPH/NS 1000 MCG/10 ML SYR IV ONE (12:00)
[2017-12-03] MEDS ORDERED: GLYCOPYRROLATE 1 MG/5 ML SYRINGE IV PUSH ONE (12:00)
[2017-12-03] MEDS ORDERED: ePHEDrine/NS 25 MG/5 ML SYRINGE IV ONE (12:00)
[2017-12-03] MEDS: LACTATED RINGER'S 1000 ML INJ 1,000 ML IV SCH ×2 (12:00→20:27)
[2017-12-03] MEDS ORDERED: LIDOCAINE HCL 1% PF 5 ML SYRINGE OTHER ONE (12:00)
[2017-12-03] MEDS ORDERED: PROPOFOL 200 MG/20 ML AMP IV ONE (12:00)
--- NOTE | 2017-12-03 12:20 | PD.CONS ---
History of Present Illness Service Family Medicine Residency Consult Requested By Dr. Looney Reason for Consult Medical Management Primary Care Physician Salty Balderrama MD Diagnoses: History of Present Illness Patient is a 77yo female who presented here today for Left total hip arthroplasty. Consulted requested for medical management due to the high number of comorbidities. Evaluated patient in the PACU. Currently patient reports that her biggest concern is her continued pain after administration of morphine and diluadid. Patient otherwise denies any symptoms including chest pain, SOB Review of Systems Except as stated in HPI: all other systems reviewed are Neg Past Family Social History Allergies: Coded Allergies: latex (Unverified Allergy, Mild, Itching, 12/03/17) Past Medical History HTN GERD Obesity Osteoarthritis Hip avascular necrosis Chronic back pain Atrial fibrillation Osteopenia HLD Stress incontinence Depression-resolved Insomnia JOZEF (wears CPAP) Past Surgical History Carpal tunnel surgery bilaterally (Lx 2, Rx1) Left total hip replacement (2018) Left total knee replacement R total knee replacement (2016) R total hip replacement (2017) Cataract surgery Gastric sleeve surgery 11/07/15 D&C for miscarriage Tubal ligation Abdominal hernia repair Reported Medications Reported Meds & Active Scripts Active Ranitidine (Ranitidine HCl) 150 Mg Cap 150 Mg PO BID Vitamin D3 (Cholecalciferol) 2,000 Unit Cap 2,000 Units PO DAILY 30 Days Crestor (Rosuvastatin Calcium) 40 Mg Tab 40 Mg PO DAILY Reported Triamterene-Hydrochlorothiazide 37.5-25 Mg Cap 1 Cap PO DAILY Coreg (Carvedilol) 3.125 Mg Tab 3.125 Mg PO BID Cyanocobalamin Inj (Cyanocobalamin) 1,000 Mcg/Ml Inj 1,000 Mcg IM MONTHLY Aspirin 81 (Aspirin) 81 Mg Tabdr 81 Mg PO DAILY Centrum Silver (Multiple Vitamins W/ Minerals) 400 Mcg-250 Mcg Chw 1 Tab PO DAILY Qvar Inh (Beclomethasone Dipropionate) 40 Mcg/Act Aero 1 Puff INH BID PRN Senexon-S 8.6-50 mg (Sennosides-Docusate Sodium) 8.6 Mg-50 Mg Tab 1 Tab PO PRN Family History Father: , heart attack Mother: at 87, DM, breast cancer in 60s Social History Lives with daughter EtOH: social--holidays Tobacco: denies. Quit smoking in her 40's (used to smoke socially for 20 yrs) Illicit drugs: denies Physical Exam Vital Signs Vital Signs Date Time Temp Pulse Resp B/P (MAP) Pulse Ox O2 Delivery O2 Flow Rate FiO2 12/03/17 11:42 15 12/03/17 11:32 15 12/03/17 11:20 98.6 78 12 135/64 (87) 100 Nasal Cannula 3 12/03/17 06:24 98.5 55 20 122/69 (86) 98 Physical Exam GENERAL: This is a well-nourished, well-developed patient, in mild distress due to pain. SKIN: No rashes, ecchymoses or lesions seen. Limited view due to splint post op. EYES: Pupils pinpoint bilaterally. Extraocular motions intact. No scleral icterus. No injection or drainage. ENT: Throat without erythema, tonsillar hypertrophy or exudate. Uvula midline. Airway patent. NECK: Supple, nontender, no meningeal signs. CARDIOVASCULAR: Regular rate and rhythm without murmurs, gallops, or rubs. RESPIRATORY: Clear to auscultation. Breath sounds equal bilaterally. No wheezes , rales, or rhonchi. GASTROINTESTINAL: Abdomen soft, non-tender, nondistended. No hepato-splenomegaly , or palpable masses. No guarding. MUSCULOSKELETAL: Left leg in splint. Unable to assess. No right calf tenderness or edema. NEUROLOGICAL: Awake and alert. Normal speech. Imaging Last Impressions Hip X-Ray 12/03/17 0757 Signed Impressions: Service Date/Time: November 11:21 - CONCLUSION: Unremarkable postoperative appearance left total hip prosthesis. Octavio Molina MD Assessment and Plan Problem List: (1) Status post total hip replacement, left ICD Codes: Z96.642 - Presence of left artificial hip joint Plan: Admitted for Left total hip on 12/03/2017. Currently in recovery. Treatment per Dr. Aure flynn -continue with Eliquis, aspirin -Pain control with [place] and morphine -Rehab upon discharge -PT consulted -incentive spirometry ordered (2) HTN (hypertension) ICD Codes: I10 - Essential (primary) hypertension Status: Chronic Plan: Clarified with patient and pharmacy about medications. -continue home Triamterene-HCTZ -Vasotec PRN (3) Atrial fibrillation ICD Codes: I48.91 - Atrial fibrillation Status: Chronic Plan: Rate controlled -Continue coreg 3.125 mg BID, hold for pulse <70 (4) Nutrition, metabolism, and development symptoms ICD Codes: R63.8 - Other symptoms and signs concerning food and fluid intake Status: Acute Plan: Diet: Regular Fluids: LR at 80 while in PACU, none otherwise Electrolytes: Hypokalemia on last BMP from 11/24/17, repeat tomorrow. Monitor and replace as needed DVT PPX: SCDs and Eliquis GI PPX: [id number], patient with GERD Elisha Arrieta MD, R3 Dec 03, 2017 12:20
[2017-12-03] MEDS ORDERED: CARV3.125 PO (12:22)
[2017-12-03] MEDS ORDERED: TRIA37.53 PO (12:22)
[2017-12-03] MEDS ORDERED: ENALAPRILAT 1.25 MG/ML VIAL IV PUSH PRN (15:45)
[2017-12-03 16:00] VITALS: BP 136/54; PULSE 79; RESP 18; TEMP 95.3; O2SAT 93
--- NOTE | 2017-12-03 17:36 | HHI.PR ---
Immediate Post Op Note Procedure Date: Dec 03, 2017 Pre Op Diagnosis: Osteoarthritic degeneration left hip Post Op Diagnosis: Osteoarthritic degeneration left hip Surgeon: Carmen Looney MD [address] Supervisor(s): Mirian CHONG Procedure: Left Total Hip Arthroplasty Specimen(s) removed: none Estimated blood loss: 200 cc Anesthesia: General Drains: None IVF Urinary Output (mLs): 0 (no aguilar) Tourniquet time (min at mmHg) none Patient to: PACU Patient Condition: Good Implant/Devices: SEE IMPLANT LOG (if applicable) Date/Time of Procedure: SEE SURGICAL CARE RECORD Mirian Michael Dec 03, 2017 17:36
[2017-12-03] MEDS: ACETAMINOPHEN/HYDROcodone 325 MG/7.5 MG TAB PO PRN ×2 (18:19→22:21)
[2017-12-03] MEDS: BECLOMETHASONE DIPROPIONATE 40 MCG/ACT 8.7 GM INHALER INH SCH (18:21)
[2017-12-03] MEDS: CARVEDILOL 3.125 MG TAB PO SCH (19:46)
[2017-12-03] MEDS: FAMOTIDINE 20 MG TAB PO SCH (19:47)
[2017-12-03] MEDS: ATORVASTATIN 80 MG TAB PO SCH (19:47)
[2017-12-03 20:56] VITALS: BP 146/63; PULSE 87; RESP 18; TEMP 97.3; O2SAT 97
[2017-12-04] VITALS (7 sets, daily range): BP systolic 101–110; BP diastolic 50–82; PULSE 65–87; RESP 16; TEMP 96.5–99; O2SAT 94–100
[2017-12-04] MEDS: ACETAMINOPHEN/HYDROcodone 325 MG/7.5 MG TAB PO PRN ×6 (02:26→22:54)
[2017-12-04 05:15] LABS: HEMATOCRIT 30.7 % (35.0-46.0); HEMOGLOBIN 10.7 GM/DL (11.6-15.3)
[2017-12-04 05:33] LABS: BICARBONATE 28.5 MEQ/L (21.0-32.0); CALCIUM 8.4 MG/DL (8.5-10.1); CREATININE 0.91 MG/DL (0.50-1.00)
--- NOTE | 2017-12-04 08:00 | PD.ORT.PN ---
Subjective Subjective Remarks Pt complaining of some numbness and pain in left ankle today. Objective Vitals Vital Signs Date Time Temp Pulse Resp B/P (MAP) Pulse Ox O2 Delivery O2 Flow Rate FiO2 12/04/17 04:09 96.5 72 16 102/55 (71) 100 12/03/17 20:56 97.3 87 18 146/63 (90) 97 12/03/17 16:00 95.3 79 18 136/54 (81) 93 12/03/17 14:10 62 16 96 Room Air 12/03/17 14:00 97.5 60 16 121/58 (79) 95 Room Air 12/03/17 13:30 58 15 125/60 (81) 100 Nasal Cannula 2 12/03/17 13:00 56 15 127/61 (83) 98 Nasal Cannula 2 12/03/17 12:30 59 15 130/68 (88) 98 Nasal Cannula 2 12/03/17 12:18 15 12/03/17 12:15 58 15 140/76 (97) 97 Nasal Cannula 2 12/03/17 12:00 60 14 136/74 (94) 97 Nasal Cannula 2 12/03/17 11:45 68 14 142/80 (100) 96 Nasal Cannula 2 12/03/17 11:42 15 12/03/17 11:32 15 12/03/17 11:30 70 14 151/62 (91) 95 Nasal Cannula 2 12/03/17 11:20 98.6 78 12 135/64 (87) 100 Nasal Cannula 3 I/O 12/03/17 12/03/17 12/03/17 12/04/17 12/04/17 12/04/17 07:00 15:00 23:00 07:00 15:00 23:00 Intake Total 1720 ml 340 ml Output Total 300 ml Balance 1420 ml 340 ml Intake Oral 120 ml 240 ml IV Total 1600 ml 100 ml Output Estimated Blood Loss 300 ml # Voids 0 2 # Bowel Movements 0 Result Diagram: 12/04/17 0326 12/04/17 0326 Imaging Last 24 hours Impressions Hip X-Ray 12/03/17 0757 Signed Impressions: Service Date/Time: November 11:21 - CONCLUSION: Unremarkable postoperative appearance left total hip prosthesis. Octavio Moilna MD Objective Remarks left ankle tender. Able to dorsiflex big toe. Sensation diminished to entire foot but grossly intact. Not moving ankle well in either direction secondary to pain. No swelling or erythema. Assessment & Plan Ortho Post Op Day #: 1 Problem List: Assessment and Plan Watch for foot drop today. May need AFO to help with ambulation. OOB with PT. Bon Looney MD Dec 04, 2017 08:00
[2017-12-04] MEDS: LACTATED RINGER'S 1000 ML INJ 1,000 ML IV SCH ×2 (08:57→21:27)
[2017-12-04] MEDS: TRIAMTERENE/HCTZ 37.5 MG/25 MG TAB PO SCH (09:00)
[2017-12-04] MEDS ORDERED: CYANOCOBALAMIN 1000 MCG/ML VIAL IM SCH (09:00)
[2017-12-04] MEDS: BECLOMETHASONE DIPROPIONATE 40 MCG/ACT 8.7 GM INHALER INH SCH ×2 (09:00→20:55)
[2017-12-04] MEDS: CARVEDILOL 3.125 MG TAB PO SCH ×2 (09:16→20:54)
[2017-12-04] MEDS: APIXABAN 2.5 MG TABLET PO SCH ×2 (09:17→20:54)
[2017-12-04] MEDS: ASPIRIN EC 81 MG TABEC PO SCH (09:17)
[2017-12-04] MEDS: MULTIVITAMINS/MINERALS THERAPEUTIC TAB PO SCH (09:17)
[2017-12-04] MEDS: CHOLECALCIFEROL (VIT D3) 1000 UNIT TAB PO SCH (09:17)
[2017-12-04] MEDS: FAMOTIDINE 20 MG TAB PO SCH ×2 (09:17→20:54)
--- NOTE | 2017-12-04 09:48 | HHI.HP ---
[facility] Service Family Medicine Primary Care Physician Salty Balderrama MD Admission Diagnosis left hip replacement Diagnoses: International Travel<30 Days: No Contact w/Intl Traveler<30days: No Known Affected Area: No History of Present Illness Ms Durant is a 77yo female who presented here for Left total hip arthroplasty. Consulted requested for medical management due to the high number of comorbidities. She has had multiple orthopedic surgeries including replacement of both knees and right hip. She has done very well with all these surgeries. She has no complaints today except 6/10 pain for which she just received her meds. Her foot is "numb" on the left per pt. But she is able to move her foot well. She is using her incentive spirometer and "knows the drill" with getting up and doing rehab. She wants to go to [place] rehab if at all possible as she went there for her 2 prior rehabs and did very well. Review of Systems Constitutional: DENIES: Weight gain Endocrine: DENIES: Polyuria Ears, nose, mouth, throat: DENIES: Running Nose Respiratory: DENIES: Cough, Sputum production, Shortness of breath Cardiovascular: DENIES: Chest pain, Lower Extremity Edema Gastrointestinal: DENIES: Abdominal pain, Difficulty Swallowing, Anorexia Musculoskeletal: COMPLAINS OF: Joint pain, DENIES: Neck pain Integumentary: DENIES: Rash Neurologic: COMPLAINS OF: Paresthesias Psychiatric: DENIES: Depression Past Family Social History Past Medical History HTN GERD Obesity Osteoarthritis Hip avascular necrosis Chronic back pain Atrial fibrillation Osteopenia HLD Stress incontinence Depression-resolved Insomnia JOZEF (wears CPAP) Past Surgical History Carpal tunnel surgery bilaterally (Lx 2, Rx1) Left total hip replacement (2018) Left total knee replacement R total knee replacement (2016) R total hip replacement (2017) Cataract surgery Gastric sleeve surgery 11/07/15 D&C for miscarriage Tubal ligation Abdominal hernia repair Reported Medications Ranitidine (Ranitidine HCl) 150 Mg Cap 150 Mg PO BID Vitamin D3 (Cholecalciferol) 2,000 Unit Cap 2,000 Units PO DAILY 30 Days Crestor (Rosuvastatin Calcium) 40 Mg Tab 40 Mg PO DAILY Allergies: Coded Allergies: latex (Unverified Allergy, Mild, Itching, 12/03/17) Active Ordered Medications Triamterene-Hydrochlorothiazide 37.5-25 Mg Cap 1 Cap PO DAILY Coreg (Carvedilol) 3.125 Mg Tab 3.125 Mg PO BID Cyanocobalamin Inj (Cyanocobalamin) 1,000 Mcg/Ml Inj 1,000 Mcg IM MONTHLY Aspirin 81 (Aspirin) 81 Mg Tabdr 81 Mg PO DAILY Centrum Silver (Multiple Vitamins W/ Minerals) 400 Mcg-250 Mcg Chw 1 Tab PO DAILY Qvar Inh (Beclomethasone Dipropionate) 40 Mcg/Act Aero 1 Puff INH BID PRN Senexon-S 8.6-50 mg (Sennosides-Docusate Sodium) 8.6 Mg-50 Mg Tab 1 Tab PO PRN Family History Father: , heart attack Mother: at 87, DM, breast cancer in 60s Social History Lives with daughter EtOH: social--holidays Tobacco: denies. Quit smoking in her 40's (used to smoke socially for 20 yrs) Illicit drugs: denies Physical Exam Vital Signs Vital Signs Date Time Temp Pulse Resp B/P (MAP) Pulse Ox O2 Delivery O2 Flow Rate FiO2 12/04/17 04:09 96.5 72 16 102/55 (71) 100 12/03/17 20:56 97.3 87 18 146/63 (90) 97 12/03/17 16:00 95.3 79 18 136/54 (81) 93 12/03/17 14:10 62 16 96 Room Air 12/03/17 14:00 97.5 60 16 121/58 (79) 95 Room Air 12/03/17 13:30 58 15 125/60 (81) 100 Nasal Cannula 2 12/03/17 13:00 56 15 127/61 (83) 98 Nasal Cannula 2 12/03/17 12:30 59 15 130/68 (88) 98 Nasal Cannula 2 12/03/17 12:18 15 12/03/17 12:15 58 15 140/76 (97) 97 Nasal Cannula 2 12/03/17 12:00 60 14 136/74 (94) 97 Nasal Cannula 2 12/03/17 11:45 68 14 142/80 (100) 96 Nasal Cannula 2 12/03/17 11:42 15 12/03/17 11:32 15 12/03/17 11:30 70 14 151/62 (91) 95 Nasal Cannula 2 12/03/17 11:20 98.6 78 12 135/64 (87) 100 Nasal Cannula 3 Physical Exam GENERAL: This is a well-nourished, well-developed patient, in mild distress due to pain. SKIN: No rashes, ecchymoses or lesions seen. EYES: Pupils pinpoint bilaterally. Extraocular motions intact. No scleral icterus. No injection or drainage. ENT: Airway patent. NECK: Supple, nontender, no meningeal signs. CARDIOVASCULAR: Regular rate and rhythm without murmurs, gallops, or rubs. RESPIRATORY: Clear to auscultation. Breath sounds equal bilaterally. No wheezes , rales, or rhonchi. GASTROINTESTINAL: Abdomen soft, non-tender, nondistended. No hepato-splenomegaly , or palpable masses. No guarding. MUSCULOSKELETAL: No right or left calf tenderness or edema. NEUROLOGICAL: Awake and alert. Normal speech. moves all extremities. She can move her left foot and "wiggle her toes". she reports "numbness" mainly ventral foot up to midfoot. she reports being able to feel her foot but it not feeling completely normal Laboratory Laboratory Tests Test 12/04/17 03:26 Hemoglobin 10.7 Hematocrit 30.7 Blood Urea Nitrogen 31 Creatinine 0.91 Random Glucose 100 Calcium Level 8.4 Sodium Level 139 Potassium Level 3.9 Chloride Level 103 Carbon Dioxide Level 28.5 Anion Gap 8 Estimat Glomerular Filtration Rate 60 Result Diagram: 12/04/176 12/04/17325 Caprini VTE Risk Assessment Caprini VTE Risk Assessment: Mod/High Risk (score >= 2) Caprini Risk Assessment Model Point Value = 1 Point Value = 2 Point Value = 3 Point Value = 5 Age 41-60 Minor surgery BMI > 25 kg/m2 Swollen legs Varicose veins or History of unexplained or recurrent spontaneous Oral contraceptives or hormone replacement Sepsis (< 1 month) Serious lung disease, including pneumonia (< 1 month) Abnormal pulmonary function Acute myocardial infarction Congestive heart failure (< 1 month) History of inflammatory bowel disease Medical patient at bed rest Age 61-74 Arthroscopic surgery Major open surgery (> 45 min) Laparoscopic surgery (> 45 min) Malignancy Confined to bed (> 72 hours) Immobilizing plaster cast Central venous access Age >= 75 History of VTE Family history of VTE Factor V Leiden Prothrombin [id number] Lupus anticoagulant Anticardiolipin antibodies Elevated serum homocysteine Heparin-induced thrombocytopenia Other congenital or acquired thrombophilia Stroke (< 1 month) Elective arthroplasty Hip, pelvis, or leg fracture Acute spinal cord injury (< 1 month) Prophylaxis Regimen Total Risk Factor Score Risk Level Prophylaxis Regimen 0-1 Low Early ambulation 2 Moderate Order ONE of the following: *Sequential Compression Device (SCD) *Heparin 5000 units SQ BID 3-4 Higher Order ONE of the following medications: *Heparin 5000 units SQ TID *Enoxaparin/Lovenox 40 mg SQ daily (WT < 150 kg, CrCl > 30 mL/min) *Enoxaparin/Lovenox 30 mg SQ daily (WT < 150 kg, CrCl > 10-29 mL/min) *Enoxaparin/Lovenox 30 mg SQ BID (WT < 150 kg, CrCl > 30 mL/min) AND/OR *Sequential Compression Device (SCD) 5 or more Highest Order ONE of the following medications: *Heparin 5000 units SQ TID (Preferred with Epidurals) *Enoxaparin/Lovenox 40 mg SQ daily (WT < 150 kg, CrCl > 30 mL/min) *Enoxaparin/Lovenox 30 mg SQ daily (WT < 150 kg, CrCl > 10-29 mL/min) *Enoxaparin/Lovenox 30 mg SQ BID (WT < 150 kg, CrCl > 30 mL/min) AND *Sequential Compression Device (SCD) Assessment and Plan Assessment and Plan Ms Durant has left hip replacement 12/03/17 Problem List: (1) Chronic obstructive lung disease Status: Chronic (2) Benign essential hypertension Status: Chronic Plan: ICD Codes: I10 - Essential (primary) hypertension Status: Chronic Plan: Clarified with patient and pharmacy about medications. -continue home Triamterene-HCTZ -Vasotec PRN her BPs are low and her meds will be held until they are high. she has lost so much weight after her gastric surgery so she may need her meds adjusted also due to that (3) Atrial fibrillation ICD Codes: I48.91 - Atrial fibrillation Status: Chronic Plan: ICD Codes: I48.91 - Atrial fibrillation Status: Chronic Plan: Rate controlled -Continue coreg 3.125 mg BID, hold for pulse <70. eliquis (4) Status post total hip replacement, left ICD Codes: Z96.642 - Presence of left artificial hip joint Status: Acute Plan: ICD Codes: Z96.642 - Presence of left artificial hip joint Plan: Admitted for Left total hip on 12/03/2017. Currently in recovery. Treatment per Dr. Aure flynn -continue with Eliquis, aspirin -Pain control with [place] and morphine -Rehab upon discharge -PT consulted -incentive spirometry ordered (5) S/P gastric surgery ICD Codes: Z98.890 - Other specified postprocedural states Status: Chronic Plan: she had multiple medical problems in the past that are resolved including DM and sleep apnea. she has lost substantial weight and is so much better now (6) Nutrition, metabolism, and development symptoms ICD Codes: R63.8 - Other symptoms and signs concerning food and fluid intake Status: Acute Plan: ICD Codes: R63.8 - Other symptoms and signs concerning food and fluid intake Status: Acute Plan: Diet: Regular Fluids: LR at 80 while in PACU, none otherwise Electrolytes: Hypokalemia on last BMP from 11/24/17. Monitor and replace as needed DVT PPX: SCDs and Eliquis GI PPX: [id number], patient with GERD Problem Qualifiers (1) Chronic obstructive lung disease: Qualified Codes: J44.9 - Chronic obstructive pulmonary disease, unspecified Jeri Chirinos MD Dec 04, 2017 09:48
[2017-12-04] MEDS: DOCUSATE SODIUM 100 MG CAP PO SCH (20:54)
[2017-12-04] MEDS: ATORVASTATIN 80 MG TAB PO SCH (20:55)
[2017-12-05] VITALS (10 sets, daily range): BP systolic 93–113; BP diastolic 48–64; PULSE 76–85; RESP 16–18; TEMP 97.1–99.5; O2SAT 94–100
[2017-12-05] MEDS: ACETAMINOPHEN/HYDROcodone 325 MG/7.5 MG TAB PO PRN ×5 (04:11→22:34)
[2017-12-05 06:52] LABS: HEMATOCRIT 27.3 % (35.0-46.0); HEMOGLOBIN 9.6 GM/DL (11.6-15.3)
[2017-12-05] MEDS: TRIAMTERENE/HCTZ 37.5 MG/25 MG TAB PO SCH (07:25)
[2017-12-05] MEDS: CARVEDILOL 3.125 MG TAB PO SCH ×2 (07:26→20:13)
[2017-12-05] MEDS: BECLOMETHASONE DIPROPIONATE 40 MCG/ACT 8.7 GM INHALER INH SCH ×2 (07:29→20:16)
[2017-12-05] MEDS: MAGNESIUM HYDROXIDE SUSP 30 ML CUP PO PRN (07:29)
[2017-12-05] MEDS: DOCUSATE SODIUM 100 MG CAP PO SCH ×2 (07:29→20:13)
[2017-12-05] MEDS: MULTIVITAMINS/MINERALS THERAPEUTIC TAB PO SCH (07:30)
[2017-12-05] MEDS: APIXABAN 2.5 MG TABLET PO SCH ×2 (07:30→20:13)
[2017-12-05] MEDS: ASPIRIN EC 81 MG TABEC PO SCH (07:30)
[2017-12-05] MEDS: CHOLECALCIFEROL (VIT D3) 1000 UNIT TAB PO SCH (07:30)
--- NOTE | 2017-12-05 08:56 | HHI.FPPN ---
Subjective Remarks No acute events overnight. VS continue to show low BP so will hold BP medications for the time being. Patient reports that she feels well but continues to endorse numbness of her left foot. Is not able to feel if she is moving it. Otherwise patient states that she feels well. Denies CP, SOB. Has not had a BM or flatus but took Milk of mg this AM which she reports typically helps. Voiding without issue. (Elisha Arrieta MD, R3) Objective Vitals Vital Signs Date Time Temp Pulse Resp B/P (MAP) Pulse Ox O2 Delivery O2 Flow Rate FiO2 12/05/17 07:24 98.8 85 18 93/48 (63) 95 12/05/17 04:00 98.6 82 18 111/62 (78) 98 12/05/17 00:00 99.0 82 18 113/57 (75) 95 12/04/17 20:12 96 21 12/04/17 20:00 99.0 85 16 110/50 (70) 96 12/04/17 16:00 98.1 87 16 105/82 (90) 96 12/04/17 12:00 97.4 79 16 101/58 (72) 94 12/04/17 11:38 98 I/O 12/04/17 12/04/17 12/04/17 12/05/17 12/05/17 12/05/17 07:00 15:00 23:00 07:00 15:00 23:00 Intake Total 720 ml 480 ml Balance 720 ml 480 ml Intake Oral 720 ml 480 ml # Voids 2 2 # Bowel Movements 0 0 (Elisha Arrieta MD, R3) Result Diagram: 12/05/17 0634 12/04/17 0326 Objective Remarks GENERAL: This is a well-nourished, well-developed patient, in no acute distress. Resting comfortably in bed. EYES: Extraocular motions intact. No scleral icterus. No injection or drainage. CARDIOVASCULAR: Regular rate and rhythm. Grade 2/6 ODIN. RESPIRATORY: Clear to auscultation. Breath sounds equal bilaterally. No wheezes , rales, or rhonchi. GASTROINTESTINAL: nondistended MUSCULOSKELETAL: Left leg in splint. able to move toes/foot. Left foot is in plantar flexion. Able to feel gross sensation to touch. No proprioception NEUROLOGICAL: Awake and alert. Normal speech. (Elisha Arrieta MD, R3) A/P Assessment and Plan 77yo female with HX of HTN, Afib, JOZEF. S/o total left hip replacement 12/03/2017. Discharge Planning Cleared from medical standpoint to SNF. Pending ortho recommendations. wdw Dr. Chirinos (Elisha Arrieta MD, R3) Attending Attestation Patient seen and examined. Case reviewed and discussed with the resident team. Agree with plan of care as discussed with me and documented in the resident note. doing well. hoping she can go to [place]. Using her CPAP machine. (Jeri Chirinos MD) Problem List: (1) Status post total hip replacement, left ICD Codes: Z96.642 - Presence of left artificial hip joint Status: Acute Plan: ICD Codes: Z96.642 - Presence of left artificial hip joint Plan: Admitted for Left total hip on 12/03/2017. Currently in recovery. Treatment per ortho, Dr. Looney. Surgery complicated by possible left foot drop but patient does have some motor function and gross sensation present. Lacking in proprioception of foot. Pt should also help with possible foot drop. -continue with Eliquis, aspirin -Pain controlled with oral medications -Rehab upon discharge -PT/OT consulted -incentive spirometry ordered (2) Benign essential hypertension Status: Chronic Plan: ICD Codes: I10 - Essential (primary) hypertension Status: Chronic Plan: Clarified with patient and pharmacy about medications. Currently on both coreg and Triamterene-HCTZ. BP has been low since surgery. Additionally, with her gastric bypass and associated weight loss, reduction of BP meds may need to be adjusted as well. -Discontinue home Triamterene-HCTZ -Vasotec PRN (3) Anemia ICD Codes: D64.9 - Anemia, unspecified Plan: Low H&H since surgery on 12/03/2017. However baseline appears to be around 10. Currently 9.6 -Monitor but expect anemia to improve -repeat H&H as an outpatient (4) Atrial fibrillation ICD Codes: I48.91 - Atrial fibrillation Status: Chronic Plan: ICD Codes: I48.91 - Atrial fibrillation Status: Chronic Plan: Rate controlled -Continue coreg 3.125 mg BID, hold for pulse <70. eliquis (5) Chronic obstructive lung disease Status: Chronic Plan: Hx of COPD but currently asymptomatic -Continue home Qvar (6) S/P gastric surgery ICD Codes: Z98.890 - Other specified postprocedural states Status: Chronic Plan: she had multiple medical problems in the past that are resolved including DM and sleep apnea. she has lost substantial weight and is so much better now (7) Nutrition, metabolism, and development symptoms ICD Codes: R63.8 - Other symptoms and signs concerning food and fluid intake Status: Acute Plan: ICD Codes: R63.8 - Other symptoms and signs concerning food and fluid intake Status: Acute Plan: Diet: Regular Fluids: NONE Electrolytes: Hypokalemia on last BMP from 11/24/17. Monitor and replace as needed DVT PPX: SCDs and Eliquis GI PPX: [id number], patient with GERD (Elisha Arrieta MD, R3) Problem Qualifiers (1) Chronic obstructive lung disease: Qualified Codes: J44.9 - Chronic obstructive pulmonary disease, unspecified Elisha Arrieta MD, R3 Dec 05, 2017 08:56 Jeri Chirinos MD Dec 05, 2017 13:19
[2017-12-05] MEDS: FAMOTIDINE 20 MG TAB PO SCH ×2 (09:00→20:13)
[2017-12-05] MEDS: LACTATED RINGER'S 1000 ML INJ 1,000 ML IV SCH ×2 (09:57→20:17)
--- NOTE | 2017-12-05 11:16 | PD.ORT.PN ---
Subjective Subjective Remarks Pt still complaining of inability to move left foot well. Feels tingling sensation throughout foot. No hip pain. Objective Vitals Vital Signs Date Time Temp Pulse Resp B/P (MAP) Pulse Ox O2 Delivery O2 Flow Rate FiO2 12/05/17 10:17 95 12/05/17 07:24 98.8 85 18 93/48 (63) 95 12/05/17 04:00 98.6 82 18 111/62 (78) 98 12/05/17 00:00 99.0 82 18 113/57 (75) 95 12/04/17 20:12 96 21 12/04/17 20:00 99.0 85 16 110/50 (70) 96 12/04/17 16:00 98.1 87 16 105/82 (90) 96 12/04/17 12:00 97.4 79 16 101/58 (72) 94 12/04/17 11:38 98 I/O 12/04/17 12/04/17 12/04/17 12/05/17 12/05/17 12/05/17 07:00 15:00 23:00 07:00 15:00 23:00 Intake Total 720 ml 480 ml Balance 720 ml 480 ml Intake Oral 720 ml 480 ml # Voids 2 2 # Bowel Movements 0 0 Result Diagram: 12/05/17 0634 12/04/17 0326 Imaging Last 24 hours Impressions Hip X-Ray 12/03/17 0757 Signed Impressions: Service Date/Time: November 11:21 - CONCLUSION: Unremarkable postoperative appearance left total hip prosthesis. Octavio Molina MD Objective Remarks left ankle less tender. Able to dorsiflex big toe. Sensation diminished to entire foot but grossly intact. Able to solitario ankle and dorsiflex big toe. Some ability to dorsiflex ankle. No swelling or erythema. Assessment & Plan Ortho Post Op Day #: 2 Problem List: Assessment and Plan AFO to help with ambulation. OOB with PT. Bon Looney MD Dec 05, 2017 11:16
[2017-12-05] MEDS: ATORVASTATIN 80 MG TAB PO SCH (20:13)
[2017-12-06] MEDS: ACETAMINOPHEN/HYDROcodone 325 MG/7.5 MG TAB PO PRN ×5 (04:27→21:13)
[2017-12-06 04:45] VITALS: BP 94/54; PULSE 82; RESP 17; TEMP 99.4; O2SAT 94
[2017-12-06 06:57] LABS: HEMATOCRIT 27.1 % (35.0-46.0); HEMOGLOBIN 9.3 GM/DL (11.6-15.3)
[2017-12-06 08:00] VITALS: BP 103/65; PULSE 78; RESP 18; TEMP 98.4; O2SAT 99
[2017-12-06] MEDS: APIXABAN 2.5 MG TABLET PO SCH ×2 (08:36→21:13)
[2017-12-06] MEDS: DOCUSATE SODIUM 100 MG CAP PO SCH ×2 (08:36→21:11)
[2017-12-06] MEDS: MULTIVITAMINS/MINERALS THERAPEUTIC TAB PO SCH (08:36)
[2017-12-06] MEDS: FAMOTIDINE 20 MG TAB PO SCH ×2 (08:36→21:10)
[2017-12-06] MEDS: CHOLECALCIFEROL (VIT D3) 1000 UNIT TAB PO SCH (08:36)
[2017-12-06] MEDS: ASPIRIN EC 81 MG TABEC PO SCH (08:36)
[2017-12-06] MEDS: BECLOMETHASONE DIPROPIONATE 40 MCG/ACT 8.7 GM INHALER INH SCH ×2 (08:37→21:13)
[2017-12-06] MEDS: CARVEDILOL 3.125 MG TAB PO SCH ×2 (08:38→21:11)
[2017-12-06] MEDS: MAGNESIUM HYDROXIDE SUSP 30 ML CUP PO PRN (09:13)
--- NOTE | 2017-12-06 09:16 | HHI.FPPN ---
Subjective Remarks No acute events overnight. BP remains low but patient is asymptomatic. Biggest concern continues to be left foot numbness that is preventing her from moving as much as she would like. Pt does endorse flatus but no BM. No associated abdominal pain, chest pain, SOB. Is having a productive cough but no other related symptoms. (Elisha Arrieta MD, R3) Objective Vitals Vital Signs Date Time Temp Pulse Resp B/P (MAP) Pulse Ox O2 Delivery O2 Flow Rate FiO2 12/06/17 04:45 99.4 82 17 94/54 (67) 94 12/05/17 23:10 97.1 76 16 101/48 (65) 100 12/05/17 19:45 99.5 83 17 101/55 (70) 98 12/05/17 19:15 96 21 12/05/17 17:28 105/64 (78) 12/05/17 16:00 97.5 80 18 93/56 (68) 95 12/05/17 11:46 98.6 79 18 99/50 (66) 94 12/05/17 10:17 95 I/O 12/05/17 12/05/17 12/05/17 12/06/17 12/06/17 12/06/17 07:00 15:00 23:00 07:00 15:00 23:00 Intake Total 480 ml 600 ml 480 ml 480 ml Balance 480 ml 600 ml 480 ml 480 ml Intake Oral 480 ml 600 ml 480 ml 480 ml # Voids 2 4 3 2 # Bowel Movements 0 0 0 0 (Elisha Arrieta MD, R3) Result Diagram: 12/06/17 0548 12/04/17 0326 Objective Remarks GENERAL: This is a well-nourished, well-developed patient, in no acute distress. EYES: Extraocular motions intact. No scleral icterus. No injection or drainage. CARDIOVASCULAR: Regular rate and rhythm. Grade 2/6 ODIN. RESPIRATORY: Clear to auscultation. Breath sounds equal bilaterally. No wheezes , rales, or rhonchi. GASTROINTESTINAL: nondistended MUSCULOSKELETAL: Left leg in splint. NEUROLOGICAL: Awake and alert. Normal speech. (Elisha Arrieta MD, R3) A/P Assessment and Plan 77yo female with HX of HTN, Afib, JOZEF. S/o total left hip replacement 12/03/2017. Discharge Planning Cleared from medical standpoint to SNF. Pending ortho recommendations. w[facility] Dr[facility]irinos [facility] Attending Attestation Patient seen and examined. Case reviewed and discussed with the resident team. Agree with plan of care as discussed with me and documented in the resident note. unsure when she can go to [place]. evidently we are still waiting for approval from the Insurance company who will be back on Thursday. Ms Durant feel well and wishes to go to rehab as soon as she can (Jeri Chirinos MD) Problem List: (1) Status post total hip replacement, left ICD Codes: Z96.642 - Presence of left artificial hip joint Status: Acute Plan: ICD Codes: Z96.642 - Presence of left artificial hip joint Plan: Admitted for Left total hip on 12/03/2017. Currently in recovery. Treatment per ortho, Dr. Looney. Surgery complicated by possible left foot drop but patient does have some motor function and gross sensation present. Lacking in proprioception of foot. PT should also help with possible foot drop. -continue with Eliquis, aspirin -Pain controlled with oral medications -Rehab upon discharge -PT/OT consulted -incentive spirometry ordered (2) Benign essential hypertension Status: Chronic Plan: ICD Codes: I10 - Essential (primary) hypertension Status: Chronic Plan: Clarified with patient and pharmacy about medications. Currently on both coreg and Triamterene-HCTZ. BP has been low since surgery. Additionally, with her gastric bypass and associated weight loss, reduction of BP meds may need to be adjusted as well. -Discontinue home Triamterene-HCTZ -Vasotec PRN (3) Anemia ICD Codes: D64.9 - Anemia, unspecified Plan: Low H&H since surgery on 12/03/2017. However baseline appears to be around 10. Currently stable around 9 -Monitor but expect anemia to improve -repeat H&H as an outpatient (4) Atrial fibrillation ICD Codes: I48.91 - Atrial fibrillation Status: Chronic Plan: ICD Codes: I48.91 - Atrial fibrillation Status: Chronic Plan: Rate controlled -Continue coreg 3.125 mg BID, hold for pulse <70. eliquis (5) Chronic obstructive lung disease Status: Chronic Plan: Hx of COPD but currently asymptomatic -Continue home Qvar (6) S/P gastric surgery ICD Codes: Z98.890 - Other specified postprocedural states Status: Chronic Plan: she had multiple medical problems in the past that are resolved including DM. she has lost substantial weight and is so much better now (7) Nutrition, metabolism, and development symptoms ICD Codes: R63.8 - Other symptoms and signs concerning food and fluid intake Status: Acute Plan: Diet: Regular Fluids: NONE Electrolytes: Hypokalemia on last BMP from 11/24/17. Monitor and replace as needed DVT PPX: SCDs and Eliquis GI PPX: [id number], patient with GERD (Elisha Arrieta MD, R3) Problem Qualifiers (1) Chronic obstructive lung disease: Qualified Codes: J44.9 - Chronic obstructive pulmonary disease, unspecified Elisha Arrieta MD, R3 Dec 06, 2017 09:16 Jeri Chirinos MD Dec 06, 2017 13:40
[2017-12-06] MEDS: LACTATED RINGER'S 1000 ML INJ 1,000 ML IV SCH ×2 (10:57→21:13)
[2017-12-06 12:00] VITALS: BP 96/54; PULSE 73; RESP 18; TEMP 97.5; O2SAT 97
--- NOTE | 2017-12-06 15:44 | PD.ORT.PN ---
Subjective Subjective Remarks Pt feeling some pain in left foot today. Feels she has more active motion. Still feels like it's spongy. No hip pain. Objective Vitals Vital Signs Date Time Temp Pulse Resp B/P (MAP) Pulse Ox O2 Delivery O2 Flow Rate FiO2 12/06/17 12:00 97.5 73 18 96/54 (68) 97 12/06/17 08:00 98.4 78 18 103/65 (78) 99 12/06/17 04:45 99.4 82 17 94/54 (67) 94 12/05/17 23:10 97.1 76 16 101/48 (65) 100 12/05/17 19:45 99.5 83 17 101/55 (70) 98 12/05/17 19:15 96 21 12/05/17 17:28 105/64 (78) 12/05/17 16:00 97.5 80 18 93/56 (68) 95 I/O 12/05/17 12/05/17 12/05/17 12/06/17 12/06/17 12/06/17 07:00 15:00 23:00 07:00 15:00 23:00 Intake Total 480 ml 600 ml 480 ml 480 ml Balance 480 ml 600 ml 480 ml 480 ml Intake Oral 480 ml 600 ml 480 ml 480 ml # Voids 2 4 3 2 # Bowel Movements 0 0 0 0 Result Diagram: 12/06/17 0548 12/04/17 0326 Imaging Last 24 hours Impressions Hip X-Ray 12/03/17 0757 Signed Impressions: Service Date/Time: November 11:21 - CONCLUSION: Unremarkable postoperative appearance left total hip prosthesis. Octavio Molina MD Objective Remarks left ankle less tender. Able to dorsiflex big toe more than yesterday. Sensation diminished to entire foot but grossly intact. Able to solitario ankle and dorsiflex big toe. Some ability to dorsiflex ankle. No swelling or erythema. Assessment & Plan Ortho Post Op Day #: 3 Problem List: Assessment and Plan AFO to help with ambulation. OOB with PT. Bon Looney MD Dec 06, 2017 15:43
[2017-12-06] MEDS ORDERED: ONDANSETRON ODT 4 MG TAB PO PRN (15:45)
[2017-12-06 16:00] VITALS: BP 103/54; PULSE 79; RESP 18; TEMP 97.7; O2SAT 94
[2017-12-06 20:00] VITALS: BP 101/48; PULSE 76; RESP 18; TEMP 98; O2SAT 95
[2017-12-06] MEDS: ATORVASTATIN 80 MG TAB PO SCH (21:12)
[2017-12-07] VITALS: BP 102/54; PULSE 72; RESP 18; TEMP 96.8; O2SAT 97
[2017-12-07] MEDS: ACETAMINOPHEN/HYDROcodone 325 MG/7.5 MG TAB PO PRN ×4 (01:37→15:14)
[2017-12-07 04:00] VITALS: BP 100/49; PULSE 71; RESP 18; TEMP 97.5; O2SAT 95
[2017-12-07 08:00] VITALS: BP 104/53; PULSE 80; RESP 18; TEMP 96.7; O2SAT 95
[2017-12-07] MEDS: MULTIVITAMINS/MINERALS THERAPEUTIC TAB PO SCH (08:15)
[2017-12-07] MEDS: DOCUSATE SODIUM 100 MG CAP PO SCH (08:15)
[2017-12-07] MEDS: CHOLECALCIFEROL (VIT D3) 1000 UNIT TAB PO SCH (08:15)
[2017-12-07] MEDS: FAMOTIDINE 20 MG TAB PO SCH (08:16)
[2017-12-07] MEDS: APIXABAN 2.5 MG TABLET PO SCH (08:16)
[2017-12-07] MEDS: CARVEDILOL 3.125 MG TAB PO SCH (08:16)
[2017-12-07] MEDS: ASPIRIN EC 81 MG TABEC PO SCH (08:16)
[2017-12-07] MEDS: MAGNESIUM HYDROXIDE SUSP 30 ML CUP PO PRN (08:18)
[2017-12-07] MEDS: BECLOMETHASONE DIPROPIONATE 40 MCG/ACT 8.7 GM INHALER INH SCH (09:00)
--- NOTE | 2017-12-07 10:11 | HHI.FPPN ---
Subjective Remarks No acute events overnight. Patient still reporting left foot and ankle numbness. Also has decreased range of motion of her left foot. She says it feels like "pins and needles." She also reports some numbness on the top of her foot. She has been trying to exercise the left leg and ankle while she sits in bed. She is worried about physical therapy and ability to move this extremity. She is able to get out of bed using a walker and to use the bedside commode. He does report constipation, and her last bowel movement was on 2017. This is abnormal for her. She denies any abdominal pain. She reports previously, that she needed a manual disimpaction. Otherwise, she is feeling well. She denies any chest pain, shortness of breath , or headaches. (John Russo MD, R3) Objective Vitals Vital Signs Date Time Temp Pulse Resp B/P (MAP) Pulse Ox O2 Delivery O2 Flow Rate FiO2 12/07/17 04:00 97.5 71 18 100/49 (66) 95 12/07/17 00:00 96.8 72 18 102/54 (70) 97 12/06/17 20:00 98.0 76 18 101/48 (65) 95 12/06/17 16:00 97.7 79 18 103/54 (70) 94 12/06/17 12:00 97.5 73 18 96/54 (68) 97 I/O 12/06/17 12/06/17 12/06/17 12/07/17 12/07/17 12/07/17 07:00 15:00 23:00 07:00 15:00 23:00 Intake Total 480 ml 480 ml 480 ml 480 ml Balance 480 ml 480 ml 480 ml 480 ml Intake Oral 480 ml 480 ml 480 ml 480 ml # Voids 2 3 2 3 # Bowel Movements 0 0 0 0 (John Russo MD, R3) Result Diagram: 12/06/17 0548 12/04/17 0326 Objective Remarks GENERAL: This is a well-nourished, well-developed patient, in no acute distress. EYES: Extraocular motions intact. No scleral icterus. No injection or drainage. CARDIOVASCULAR: Regular rate and rhythm. Grade 2/6 ODIN. RESPIRATORY: Clear to auscultation. Breath sounds equal bilaterally. No wheezes , rales, or rhonchi. GASTROINTESTINAL: nondistended MUSCULOSKELETAL: Left leg in splint. 3 out of 5 strength and plantar flexion, and dorsiflexion of her left foot. Able to move her toes. Decreased sensation over the lateral, dorsal foot. Pulses faint. 4 out of 5 strength at the hip. Incision looks clean dry and intact. NEUROLOGICAL: Awake and alert. Normal speech. (John Russo MD, R3) A/P Assessment and Plan 77yo female with HX of HTN, Afib, JOZEF. S/o total left hip replacement 12/03/2017. Discharge Planning Cleared from medical standpoint to SNF. Pending ortho recommendations. (John Russo MD, R3) Attending Attestation THIS CASE WAS DISCUSSED WITH THE RESIDENT PHYSICIANS.PATIRNT WAS SEEN EXAMINED WITH DR Marc RUSSO, I HAVE REVIEWED THE RECORD AND AGREE WITH THE ABOVE NOTE AND PLAN OF CARE WAS DISCUSSED. I HAVE AUTHORIZED THE ORDER SET. (Vivek Carl MD) Problem List: (1) Status post total hip replacement, left ICD Codes: Z96.642 - Presence of left artificial hip joint Status: Acute Plan: ICD Codes: Z96.642 - Presence of left artificial hip joint Plan: Admitted for Left total hip on 12/03/2017. Currently in recovery. Treatment per ortho, Dr. Looney. Surgery complicated by possible left foot drop but patient does have some motor function and gross sensation present. Lacking in proprioception of foot. PT should also help with possible foot drop. -continue with Eliquis, aspirin -Pain controlled with oral medications -Rehab upon discharge -PT/OT consulted -incentive spirometry ordered (2) Benign essential hypertension Status: Chronic Plan: ICD Codes: I10 - Essential (primary) hypertension Status: Chronic Plan: Clarified with patient and pharmacy about medications. Currently on both coreg and Triamterene-HCTZ. BP has been low since surgery. Additionally, with her gastric bypass and associated weight loss, reduction of BP meds may need to be adjusted as well. -Discontinue home Triamterene-HCTZ -Vasotec PRN (3) Anemia ICD Codes: D64.9 - Anemia, unspecified Plan: Low H&H since surgery on 12/03/2017. However baseline appears to be around 10. Currently stable around 9 -Monitor but expect anemia to improve -repeat H&H as an outpatient (4) Atrial fibrillation ICD Codes: I48.91 - Atrial fibrillation Status: Chronic Plan: ICD Codes: I48.91 - Atrial fibrillation Status: Chronic Plan: Rate controlled -Continue coreg 3.125 mg BID, hold for pulse <70. eliquis (5) Chronic obstructive lung disease Status: Chronic Plan: Hx of COPD but currently asymptomatic -Continue home Qvar (6) S/P gastric surgery ICD Codes: Z98.890 - Other specified postprocedural states Status: Chronic Plan: she had multiple medical problems in the past that are resolved including DM. she has lost substantial weight and is so much better now (7) Nutrition, metabolism, and development symptoms ICD Codes: R63.8 - Other symptoms and signs concerning food and fluid intake Status: Acute Plan: Diet: Regular Fluids: NONE Electrolytes: Hypokalemia on last BMP from 11/24/17. Monitor and replace as needed DVT PPX: SCDs and Eliquis GI PPX: [id number], patient with GERD SDW Dr. Carl. (John Russo MD, R3) Problem Qualifiers (1) Chronic obstructive lung disease: Qualified Codes: J44.9 - Chronic obstructive pulmonary disease, unspecified John Russo MD, R3 Dec 07, 2017 10:11 Vivek Carl MD Dec 07, 2017 21:01
[2017-12-07] MEDS ORDERED: BISACODYL 10 MG SUPP RECTAL ONE (10:15)
[2017-12-07 10:46] LABS: HEMATOCRIT 29.2 % (35.0-46.0)
--- NOTE | 2017-12-07 11:38 | PD.ORT.PN ---
Subjective Subjective Remarks Pt feeling more sensation in foot today. Objective Vitals Vital Signs Date Time Temp Pulse Resp B/P (MAP) Pulse Ox O2 Delivery O2 Flow Rate FiO2 12/07/17 08:00 96.7 80 18 104/53 (70) 95 12/07/17 04:00 97.5 71 18 100/49 (66) 95 12/07/17 00:00 96.8 72 18 102/54 (70) 97 12/06/17 20:00 98.0 76 18 101/48 (65) 95 12/06/17 16:00 97.7 79 18 103/54 (70) 94 12/06/17 12:00 97.5 73 18 96/54 (68) 97 I/O 12/06/17 12/06/17 12/06/17 12/07/17 12/07/17 12/07/17 07:00 15:00 23:00 07:00 15:00 23:00 Intake Total 480 ml 480 ml 480 ml 480 ml Balance 480 ml 480 ml 480 ml 480 ml Intake Oral 480 ml 480 ml 480 ml 480 ml # Voids 2 3 2 3 # Bowel Movements 0 0 0 0 Result Diagram: 12/07/17 0959 12/04/17 0326 Imaging Last 24 hours Impressions Hip X-Ray 12/03/17 0757 Signed Impressions: Service Date/Time: November 11:21 - CONCLUSION: Unremarkable postoperative appearance left total hip prosthesis. Octavio Molina MD Objective Remarks left ankle less tender. Able to dorsiflex big toe more than yesterday. Sensation returning to foot. Able to solitario ankle and dorsiflex big toe. Some better ability to dorsiflex ankle. No swelling or erythema.Wound clean and dry. Assessment & Plan Ortho Post Op Day #: 4 Problem List: Assessment and Plan AFO to help with ambulation. SNF today. Bon Looney MD Dec 07, 2017 11:38
[2017-12-07] MEDS ORDERED: HYDR-3580 PO (11:42)
--- NOTE | 2017-12-07 11:44 | HHI.DS ---
Discharge Summary Admission Date Dec 03, 2017 at 05:35 Discharge Date: Dec 07, 2017 Admitting Diagnosis Osteoarthritic Degeneration left hip Diagnosis: (1) Osteoarthritis of left hip Diagnosis: Principal ICD Codes: M16.12 - Unilateral primary osteoarthritis, left hip (2) Status post total hip replacement, left ICD Codes: Z96.642 - Presence of left artificial hip joint Status: Acute Brief History This is a 77 year old female patient CBC/BMP: 12/07/17 0959 12/04/17 0326 Significant Findings Laboratory Tests Test 12/05/17 06:34 12/06/17 05:48 12/07/17 09:59 Hemoglobin 9.6 GM/DL (11.6-15.3) 9.3 GM/DL (11.6-15.3) 10.0 GM/DL (11.6-15.3) Hematocrit 27.3 % (35.0-46.0) 27.1 % (35.0-46.0) 29.2 % (35.0-46.0) PE at Discharge left ankle less tender. Able to dorsiflex big toe more than yesterday. Sensation returning to foot. Able to solitario ankle and dorsiflex big toe. Some better ability to dorsiflex ankle. No swelling or erythema.Wound clean and dry. Hospital Course This patient underwent a left total hip arthroplasty on day of admission. She received a course of prophylactic IV antibiotics and within 23 hours started on anticoagulation therapy. She continued to improve was found to have a partial foot drop for which a foot drop brace was ordered. She progressed with physical therapy remained afebrile tolerating food and fluid well and by mouth pain meds. She was discharged on fourth postoperative day to residential facility in good condition with instructions for continued physical therapy and follow-up and foot drop brace. Pt Condition on Discharge: Good Discharge Disposition: Discharge to SNF Discharge Instructions Diet Instructions: As Tolerated, No Restrictions Activities You Can Perform: Full Weight Bearing, Shower Only-No Bath Activities to Avoid: Bathing, Driving Additional Activity Instruc.: Foot drop brace required for left foot. Bon Looney MD Dec 07, 2017 11:44
[2017-12-07] MEDS: LACTATED RINGER'S 1000 ML INJ 1,000 ML IV SCH (11:57)
[2017-12-07 12:00] VITALS: BP 109/58; PULSE 75; RESP 18; TEMP 97; O2SAT 95
[2017-12-07 13:20] VITALS: O2SAT 95
== END 2017-12-07 20:14 | DRG 470 ==
LOC: HSDI 05:35 → N06A 14:24
PROVIDERS: ADMIT Surgery; ATTEND Surgery
PROC: 0SRB04A Replacement of Left Hip Joint with Ceramic on Polyethylene Synthetic Substitute, Uncemented, Open Approach (ICD-10-PCS; principal; 2017-12-03 08:00)
DX: M16.12 Unilateral primary osteoarthritis, left hip (principal); J44.9 Chronic obstructive pulmonary disease, unspecified; Z68.42 Body mass index [BMI] 45.0-49.9, adult; I48.91 Unspecified atrial fibrillation; M41.9 Scoliosis, unspecified; Z96.641 Presence of right artificial hip joint; Z96.643 Presence of artificial hip joint, bilateral; I10 Essential (primary) hypertension; E78.5 Hyperlipidemia, unspecified; E66.9 Obesity, unspecified; K21.9 Gastro-esophageal reflux disease without esophagitis; M85.80 Other specified disorders of bone density and structure, unspecified site; N39.3 Stress incontinence (female) (male); E87.6 Hypokalemia; M25.752 Osteophyte, left hip; R20.0 Anesthesia of skin; G47.33 Obstructive sleep apnea (adult) (pediatric); D64.9 Anemia, unspecified; M21.372 Foot drop, left foot; K59.00 Constipation, unspecified; Z87.891 Personal history of nicotine dependence; Z91.040 Latex allergy status; Z98.84 Bariatric surgery status
CPT/HCPCS: 73501; 80048; 85014; 85018; 86850; 86900; 86901; 94150; C1776; C9290; J0690; J1100; J1170; J1580; J2250; J2270; J2370; J2405; J2710; J3010; J3370; J7050; J7120; L1830; L1960

== ENCOUNTER 2017-12-14 02:31 | Emergency (ER) | payer MEDICARE, MEDICAID ==
[~2017-12-14] VITALS: Ht 142.2 cm; Wt 90.0 kg
[~2017-12-14 02:31] MED LIST changes: -BECL0.07 INH; -CARV3.12 PO; +CARV3.125 PO; +CYAN1000P IM; +HYDR-3580 PO; -TRIA37.5 PO
[2017-12-14 02:44] VITALS: BP 132/63; PULSE 73; RESP 16; TEMP 98.8; O2SAT 95
--- NOTE | 2017-12-14 03:05 | PD ---
HPI Chief Complaint: Pain: Acute or Chronic Time Seen by Provider: 02:46 Travel History International Travel<30 days: No Contact w/Intl Traveler<30days: No Traveled to known affect area: No History of Present Illness HPI The patient is a 77 year old female who presents to the [facility] emergency department with a history of left foot pain that she reports began after left hip surgery on December 03, 2017. The patient reports that yesterday the pain became worse and was unrelieved with Percocet that she is on for postoperative pain. She is currently residing at [facility] for rehabilitation. 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 She reports that she has had some swelling in her legs, however it improves with elevating the leg. She reports that her left foot pain improves with elevating her leg or lying down. She denies any injury or fall. She reports that she has been doing some weightbearing with rehabilitation. She reports that her wound is healing well. She denies having any known recent fevers. She denies having any pain in her right foot. She reports that over the last 2-3 days she has had pain in her left calf. She denies being on any anticoagulation. She reports that she is on low-dose aspirin. The patient does have a history of chronic atrial fibrillation. On review of systems otherwise she denies having any known recent fevers, cough or congestion, neck pain, chest pain, shortness of breath, abdominal pain, vomiting , diarrhea, or other neurologic symptoms. The patient incidentally reports on review of systems having dysuria with urinary frequency and urgency and a stronger odor to her urine over the last 2-3 days. She denies any loss of bowel or bladder control. She denies having any new weakness of her extremities. [facility] Past Medical History Narrative Medical The patient's past medical history is significant for hypertension, acid reflux , obesity, osteoarthritis, avascular necrosis of the hip, chronic back pain, atrial fibrillation, osteopenia, hyperlipidemia, stress incontinence, insomnia, obstructive sleep apnea on CPAP. Hx Anticoagulant Therapy: Yes (eliquis) Arthritis: Yes Asthma: Yes Autoimmune Disease: No Anxiety: No Depression: Yes Heart Rhythm Problems: Yes (Afib) Cancer: No Cardiovascular Problems: Yes (AFIB) High Cholesterol: Yes Chemotherapy: No Chest Pain: No Congestive Heart Failure: No COPD: No Cerebrovascular Accident: No Diabetes: No Diminished Hearing: No Endocrine: Yes Gastrointestinal Disorders: Yes GERD: Yes Glaucoma: No Genitourinary: Yes (urgency) Hepatitis: No Hiatal Hernia: No Hypertension: Yes Immune Disorder: Yes (rheumatoid arthritis) Implanted Vascular Access Dvce: Yes Kidney Stones: No Musculoskeletal: Yes Neurologic: No Psychiatric: Yes (hx DEPRESSION) Reproductive: No Respiratory: Yes Integumentary: No Immunizations Current: No Migraines: No Radiation Therapy: No Renal Failure: No Seizures: No Sickle Cell Disease: No Sleep Apnea: Yes (CPAP at at bedtime) Thyroid Disease: No Ulcer: No Menopausal: Yes Dilation and Curettage (D&C): Yes Past Surgical History Narrative Surgical The patient's past surgical history is significant for carpal tunnel surgery bilaterally, left total hip replacement, left total knee replacement, right total knee replacement, right total hip replacement, cataract surgery, gastric sleeve surgery, D&C, bilateral tubal ligation, abdominal hernia repair. Abdominal Surgery: Yes (bariatric/gastric stapling, UMBILICAL HERNIA) AICD: No Arteriovenous Shunt: No Body Medical Devices: pt sts she has something implanted under r breast for growth being watched Cardiac Surgery: No Ear Surgery: No Endocrine Surgery: No Eye Surgery: Yes (BILATERAL CATARACT) Genitourinary Surgery: No Gynecologic Surgery: Yes (D&C due miscarriage, TUBAL LIGATION) Insulin Pump: No Joint Replacement: Yes (BILATERAL KNEES, Right BUDDY ) Oral Surgery: No Pacemaker: No Thoracic Surgery: No Other Surgery: Yes (removal of cyst right breast ) Social History Alcohol Use: Yes (RARE) Tobacco Use: No Substance Use: No Allergies-Medications (Allergen,Severity, Reaction): Coded Allergies: latex (Unverified Allergy, Mild, Itching, 12/14/17) Reported Meds & Prescriptions Reported Meds & Active Scripts Active Gabapentin 100 Mg Cap 100 Mg PO TID Hydrocodone-Acetamin 7.5-325 (Hydrocodone/Acetaminophen) 7.5 Mg-325 Mg Tablet 1 Tab PO Q4H PRN 14 Days Ranitidine (Ranitidine HCl) 150 Mg Cap 150 Mg PO BID Vitamin D3 (Cholecalciferol) 2,000 Unit Cap 2,000 Units PO DAILY 30 Days Crestor (Rosuvastatin Calcium) 40 Mg Tab 40 Mg PO DAILY Reported Coreg (Carvedilol) 3.125 Mg Tab 3.125 Mg PO BID Cyanocobalamin Inj (Cyanocobalamin) 1,000 Mcg/Ml Inj 1,000 Mcg IM MONTHLY Aspirin 81 (Aspirin) 81 Mg Tabdr 81 Mg PO DAILY Centrum Silver (Multiple Vitamins W/ Minerals) 400 Mcg-250 Mcg Chw 1 Tab PO DAILY Senexon-S 8.6-50 mg (Sennosides-Docusate Sodium) 8.6 Mg-50 Mg Tab 1 Tab PO PRN Review of Systems Except as stated in HPI: all other systems reviewed are Neg General / Constitutional: No: Fever Eyes: No: Visual changes HENT: No: Headaches Cardiovascular: No: Chest Pain or Discomfort Respiratory: No: Shortness of Breath Gastrointestinal: No: Abdominal Pain Genitourinary: No: Dysuria Musculoskeletal: Positive: Myalgias, Arthralgias, Edema, Pain Skin: No Rash Neurologic: No: Weakness, Focal Abnormalities, Change in Mentation, Slurred Speech, Sensory Disturbance Psychiatric: No: Depression Endocrine: No: Polydipsia Hematologic/Lymphatic: No: Easy Bruising Physical Exam Narrative General: The patient is a well-developed well-nourished female in no acute distress. Head and Neck exam: Head is normocephalic atraumatic. Eyes: EOMI, pupils are equal round and reactive to light. Nose: Midline septum with pink mucous membranes Mouth: Dentition unremarkable. Moist mucus membranes. Posterior oropharynx is not erythematous. No tonsillar hypertrophy. Uvula midline. Airway patent. Neck: No palpable lymphadenopathy. No nuchal rigidity. No thyromegaly. Cardiovascular: Regular rate and rhythm without murmurs, gallops, or rubs. Lungs: Clear to auscultation bilaterally. No wheezes, rhonchi, or rales. Abdomen: Soft, without tenderness to palpation in all 4 quadrants of the abdomen. No guarding, rebound, or rigidity. Normal bowel sounds are audible. No tenderness on palpation of McBurney's point. Extremities: No clubbing, cyanosis, or edema. 2+ pulses in all 4 extremities. The patient reports tenderness on palpation over the left calf with positive Homans sign. There is no point tenderness on palpation of the patient's left foot. The patient has no crepitus. No significant swelling. No erythema or warmth on palpation. She has less than 3 second capillary refill of her digits. Intact sensation of her toes. The patient has a wound along the lateral hip that appears to be healing well without any signs of erythema, edema, or drainage. Back: No spinous process tenderness to palpation. No costovertebral angle tenderness to palpation. Neurologic Exam: Grossly nonfocal. Skin Exam: No rash noted. Intact skin that is warm and dry. Data Data Last Documented VS Vital Signs Date Time Temp Pulse Resp B/P (MAP) Pulse Ox O2 Delivery O2 Flow Rate FiO2 12/14/17 02:52 76 16 12/14/17 02:44 98.8 132/63 (86) 95 Orders Orders Complete Blood Count With Diff (12/14/17 02:56) Basic Metabolic Panel (Bmp) (12/14/17 02:56) Prothrombin Time / Inr (Pt) (12/14/17 02:56) Act Partial Throm Time (Ptt) (12/14/17 02:56) C-Reactive Protein (Crp) (12/14/17 02:56) Iv Access Insert/Monitor (12/14/17 02:56) Ecg Monitoring (12/14/17 02:56) Oximetry (12/14/17 02:56) Us Leg Venous Doppler (12/14/17 02:56) Foot, Complete (Tzh6tab) (12/14/17 03:23) Ct Lumb Spine W/O Contrast (12/14/17 04:36) Ketorolac Inj (Toradol Inj) (12/14/17 04:45) Ed Discharge Order (12/14/17 05:32) Labs Laboratory Tests Test 12/14/17 03:06 White Blood Count 8.0 TH/MM3 Red Blood Count 3.32 MIL/MM3 Hemoglobin 9.8 GM/DL Hematocrit 29.1 % Mean Corpuscular Volume 87.8 FL Mean Corpuscular Hemoglobin 29.6 PG Mean Corpuscular Hemoglobin Concent 33.7 % Red Cell Distribution Width 15.0 % Platelet Count 406 TH/MM3 Mean Platelet Volume 6.8 FL Neutrophils (%) (Auto) 71.1 % Lymphocytes (%) (Auto) 18.0 % Monocytes (%) (Auto) 7.2 % Eosinophils (%) (Auto) 3.1 % Basophils (%) (Auto) 0.6 % Neutrophils # (Auto) 5.7 TH/MM3 Lymphocytes # (Auto) 1.4 TH/MM3 Monocytes # (Auto) 0.6 TH/MM3 Eosinophils # (Auto) 0.2 TH/MM3 Basophils # (Auto) 0.0 TH/MM3 CBC Comment DIFF FINAL Differential Comment Prothrombin Time 10.2 SEC Prothromb Time International Ratio 1.0 RATIO Activated Partial Thromboplast Time 25.9 SEC Blood Urea Nitrogen 30 MG/DL Creatinine 0.82 MG/DL Random Glucose 89 MG/DL Calcium Level 8.8 MG/DL Sodium Level 139 MEQ/L Potassium Level 4.1 MEQ/L Chloride Level 103 MEQ/L Carbon Dioxide Level 29.3 MEQ/L Anion Gap 7 MEQ/L Estimat Glomerular Filtration Rate 68 ML/MIN C-Reactive Protein 4.83 MG/DL MDM Medical Decision Making Medical Screen Exam Complete: Yes Emergency Medical Condition: Yes Medical Record Reviewed: Yes Interpretation(s) Last Impressions Lumbar Spine CT 12/14/17435 Signed Impressions: Service Date/Time: Thursday, December 14, 2017 04:49 - CONCLUSION: 1. S-shaped thoracic or lumbar scoliosis with severe multilevel degenerative disc disease. At L4-L5 there is moderate to severe spinal canal stenosis. 2. There are multiple levels of moderate severe neural foraminal narrowing, as above. Wil French MD Foot X-Ray 12/14/17 0323 Signed Impressions: Service Date/Time: Thursday, December 14, 2017 03:32 - CONCLUSION: Mild soft tissue swelling on the dorsal aspect of the foot. No acute osseous abnormality is identified. Wil French MD Lower Extremity Ultrasound 12/14/17 0256 Signed Impressions: Service Date/Time: Thursday, December 14, 2017 03:57 - CONCLUSION: No DVT is identified within the left lower extremity. Wil French MD Differential Diagnosis DVT, versus neuropathy, versus radiculopathy, versus plantar fasciitis, versus stress fracture, versus cellulitis Narrative Course During the course of the patients emergency department visit, the patients history, examination, and differential diagnosis were reviewed with the patient. The patient was placed on a master sonar technician with oximetry and frequent blood pressure monitoring. The patient had IV access obtained and blood work sent for analysis. The patient was initially provided Toradol for pain. The patients laboratory studies were reviewed and remarkable for a white count of 8, hemoglobin 9.8, platelets 406 with 71.1 neutrophils, basic metabolic profile is remarkable for a BUN of 30, GFR 68, C-reactive protein is 4.83, PT 10.2, PTT 25.9 Radiology studies were reviewed and remarkable for left foot x-ray shows mild soft tissue swelling along the dorsal aspect of the foot, no acute osseous abnormality identified. Ultrasound of the left lower extremity reveals no evidence of DVT. CT scan of the lumbar spine reveals S-shaped thoracic and lumbar scoliosis with severe multilevel degenerative disc disease, L4-L5 there is moderate to severe spinal canal stenosis, there are multiple levels of moderate severe neural foraminal narrowing. This could be contributing to a radiculopathy. The patient's current pain medication regimen will be augmented with gabapentin for a suspected neuropathy/radiculopathy. A prescription will be provided. The patient is instructed to follow-up with her primary care physician for reexamination in 2 days. The patient is given a copy of her CT scan of the lumbar spine for follow-up with her primary care physician. The patient is given the name of the neurosurgeon on-call for follow-up. The patient is resting comfortably and feels better, is alert and in no distress. The patients results and examination findings were discussed with the patient. The repeat examination is unremarkable and benign. The history, exam, diagnostic testing, and current condition do not suggest any significant pathology to warrant further testing, continued ED treatment, admission, or surgical evaluation at this point. The vital signs have been stable. The patient does not have uncontrollable pain, intractable vomiting, or other significant symptoms. The patient's condition is stable and appropriate for discharge. The patient will pursue further outpatient evaluation with a primary care physician or other designated or consulting physician as indicated in the discharge instructions. The patient expressed understanding and was agreeable with this plan. Diagnosis Primary Impression: Neuropathy Additional Impressions: Lumbar radiculopathy Spinal stenosis at L4-L5 level Referrals: Guanaco Reed MD 1 week Primary Care Physician 2 days Patient Instructions: General Instructions, Peripheral Neuropathy (ED) Med/Other Pt SpecificInfo: Prescription(s) given Scripts Gabapentin (Gabapentin) 100 Mg Cap 100 MG PO TID, #30 CAP 0 Refills Prov: Erica Long MD 12/14/17 Disposition: 03 DISCHARGE TO SNF Condition: Stable Erica Long MD Dec 14, 2017 03:05
[2017-12-14 03:11] LABS: AUTOMATED NEUTROPHIL # 5.7 TH/MM3 (1.8-7.7); BASOPHIL % 0.6 % (0.0-2.0); EOSINOPHIL # 0.2 TH/MM3 (0-0.4); EOSINOPHIL % 3.1 % (0.0-4.0); HEMATOCRIT 29.1 % (35.0-46.0); HEMOGLOBIN 9.8 GM/DL (11.6-15.3); LYMPHOCYTE # 1.4 TH/MM3 (1.0-4.8); MEAN CELL VOLUME 87.8 FL (80.0-100.0); MEAN CORPUSCULAR HEMOGLOBIN 29.6 PG (27.0-34.0); MEAN CORPUSCULAR HGB CONC 33.7 % (32.0-36.0); MEAN PLATELET VOLUME 6.8 FL (7.0-11.0); MONO % 7.2 % (0.0-8.0); MONOCYTE # 0.6 TH/MM3 (0-0.9); NEUT % 71.1 % (16.0-70.0); PLATELET COUNT 406 TH/MM3 (150-450); RED BLOOD COUNT 3.32 MIL/MM3 (4.00-5.30)
[2017-12-14 03:21] LABS: PROTHROMBIN TIME - PATIENT 10.2 SEC (9.8-11.6)
[2017-12-14 03:28] LABS: BICARBONATE 29.3 MEQ/L (21.0-32.0); C-REACTIVE PROTEIN 4.83 MG/DL (0.00-0.30); CALCIUM 8.8 MG/DL (8.5-10.1); CREATININE 0.82 MG/DL (0.50-1.00)
--- NOTE | 2017-12-14 03:51 | RADRPT ---
EXAM DATE/TIME: 12/14/2017 03:32 [facility] COMPARISON: No previous studies available for comparison. INDICATIONS : Pain in left foot. MEDICAL HISTORY : None. SURGICAL HISTORY : None. ENCOUNTER: Initial ACUITY: 1 day PAIN SCORE: 0/10 LOCATION: Left foot FINDINGS: 3 views of the right foot demonstrate mildly under mineralized bones without a fracture identified. T here is less than optimal positioning. Lisfranc joint appears intact. There is mild soft tissue swell ing on the dorsal aspect of the foot. No concerning radiopaque foreign body is identified. CONCLUSION: Mild soft tissue swelling on the dorsal aspect of the foot. No acute osseous abnormality is identifie dPeng French MD on December 14, 2017 at 3:48 Board Certified Radiologist. This report was verified electronically.
--- NOTE | 2017-12-14 04:32 | RADRPT ---
EXAM DATE/TIME: 12/14/2017 03:57 [facility] COMPARISON: US LEG LEFT VENOUS DOPPLER, June 10, 2016, 17:12. EXTERNAL COMPARISON : [facility], US LEG VENOUS DOPPLER, LEFT, November 16, 2009, US LEG VENOUS DOPPLER, BILATERAL, October 15, 2009. INDICATIONS : Left leg pain. MEDICAL HISTORY : Hypercholesterolemia. Rheumatoid arthritis. Arthritis. Afib. Asthma. Sleep apnea. HTN. GERD. Depre ssion. Anticoagulant therapy, Aspirin 81mg. SURGICAL HISTORY : Umbilical hernia repair. Tubal ligation. Bilateral cataracts. Bariatric/gastric stapling. D&C. Bila teral knee replacements. Right total hip replacement. Right breast cyst removal. Blood transfusions. ENCOUNTER: Subsequent ACUITY: 2 weeks PAIN SCORE: 8/10 LOCATION: Left leg. TECHNIQUE: Venous ultrasound of the leg was performed from the inguinal ligament to the proximal calf. Real-torrey e, color Doppler and spectral tracing, compression and augmentation techniques were used. FINDINGS: There is normal compressibility of the deep venous system from the inguinal region to the proximal ca lf. No echogenic clot is seen in the lumen of the common femoral, femoral, popliteal, and posterior tibial veins. There is a normal response of the venous system to proximal and distal augmentation an d respiration. CONCLUSION: No DVT is identified within the left lower extremity. Wil French MD on December 14, 2017 at 4:30 Board Certified Radiologist. This report was verified electronically.
[2017-12-14] MEDS ORDERED: KETOROLAC TROMETHAMINE 30 MG/ML (IVP) VIAL IV PUSH ONE (04:45)
[2017-12-14] MEDS ORDERED: GABA100C4 PO (05:17)
--- NOTE | 2017-12-14 05:20 | RADRPT ---
EXAM DATE/TIME: 12/14/2017 04:49 [place] COMPARISON: No previous studies available for comparison. INDICATIONS : Left leg pain. RADIATION DOSE: 41.49 CTDIvol (mGy) ; Patient body habitus MEDICAL HISTORY : Cardiovascular disease. Hypertension. SURGICAL HISTORY : Tubal ligation. Umbilical hernia repair.Gastric bypass. Bilateral knees and hips ENCOUNTER: Initial ACUITY: 1 day PAIN SCALE: 0/10 LOCATION: lumbar TECHNIQUE: Volumetric scanning of the lumbar spine was performed. Multiplanar reconstructions in the sagittal, coronal and oblique axial planes were performed. Using automated exposure control and adjustment of the mA and/or kV according to patient size, radiation dose was kept as low as reasonably achievable t o obtain optimal diagnostic quality images. DICOM format image data is available electronically for review and comparison. FINDINGS: VERTEBRAE: Vertebral body height is maintained. There is S-shaped thoracic or lumbar scoliosis. There is leftwar d subluxation of L4 on L5 bilateral millimeters and there is a rightward subluxation of L1 on L2-L2 o n L3. ALIGNMENT: No anterolisthesis or retrolisthesis is present. At T11-T12 there is decreased disc height with severe left neural foraminal narrowing. T12-L1: Decreased disc height with vacuum disc and posterior disc osteophyte complex. No canal stenosis is ap preciated. There is severe left neural foraminal narrowing. L1-L2: Decreased disc height with posterior osteophytic ridging and mild facet hypertrophy. The canal is mil dly narrowed. There is moderate to severe left neural foraminal stenosis. L2-L3: Decreased disc height with mild vacuum disc phenomenon and posterior osteophytic ridging with facet a nd ligamentum flavum hypertrophy. There is mild spinal canal stenosis with moderate to severe right a nd mild left neural foraminal narrowing. L3-L4: There is decreased disc height with diffuse disc bulge and severe facet and ligamentum flavum hypertr ophy. Canal is likely mildly narrowed. There is mild right neural foraminal narrowing. L4-L5: There is decreased disc height with vacuum disc and endplate sclerosis. There is severe facet hypertr ophy. Changes result in moderate to severe spinal canal stenosis. There is moderate to severe right n eural foraminal stenosis. L5-S1: Decreased disc height with diffuse posterior osteophytic ridging. There is bilateral facet hypertroph y. No canal stenosis is appreciated. There is a moderate to severe left neural foraminal narrowing. There is atherosclerotic disease of the aorta and a small hiatal hernia is present. CONCLUSION: 1. S-shaped thoracic or lumbar scoliosis with severe multilevel degenerative disc disease. At L4-L5 t here is moderate to severe spinal canal stenosis. 2. There are multiple levels of moderate severe neural foraminal narrowing, as above. Wil French MD on December 14, 2017 at 5:14 Board Certified Radiologist. This report was verified electronically.
[2017-12-14] MEDS ORDERED: GABAPENTIN 100 MG CAP PO ONE (06:00)
[2017-12-14 07:00] VITALS: RESP 16; O2SAT 99
[2017-12-14 09:55] VITALS: BP 130/77; TEMP 97.8
== END 2017-12-14 09:57 ==
LOC: NEPC 02:31
DX: G62.9 Polyneuropathy, unspecified (principal); M54.16 Radiculopathy, lumbar region; M48.061 Spinal stenosis, lumbar region without neurogenic claudication; E78.00 Pure hypercholesterolemia, unspecified; I10 Essential (primary) hypertension; K21.9 Gastro-esophageal reflux disease without esophagitis
CPT/HCPCS: 72131; 73630; 80048; 85025; 85610; 85730; 86140; 93971; 96374; 99285; J1885

== ENCOUNTER → 2018-04-02 | Outpatient (CLI) | payer MEDICARE, MEDICAID ==
[~2018-04-02] MED LIST changes: +GABA100C4 PO
[2018-04-02 10:35] LABS: HEMATOCRIT 36.8 % (35.0-46.0); HEMOGLOBIN 12.1 GM/DL (11.6-15.3); MEAN CELL VOLUME 87.1 FL (80.0-100.0); MEAN CORPUSCULAR HEMOGLOBIN 28.7 PG (27.0-34.0); MEAN CORPUSCULAR HGB CONC 32.9 % (32.0-36.0); MEAN PLATELET VOLUME 7.8 FL (7.0-11.0); PLATELET COUNT 200 TH/MM3 (150-450); RED BLOOD COUNT 4.22 MIL/MM3 (4.00-5.30); RED CELL DISTRIBUTION WIDTH 16.2 % (11.6-17.2); WHITE BLOOD COUNT 5.4 TH/MM3 (4.0-11.0)
[2018-04-02 10:56] LABS: ALBUMIN 3.6 GM/DL (3.4-5.0); AST (GOT) 19 U/L (15-37); BICARBONATE 28.3 MEQ/L (21.0-32.0); BLOOD UREA NITROGEN 43 MG/DL (7-18); CALCIUM 9.3 MG/DL (8.5-10.1); CHLORIDE 106 MEQ/L (98-107); CHOLESTEROL 169 MG/DL (120-200); CREATININE 0.98 MG/DL (0.50-1.00); GLOMERULAR FILTRATION RATE 55 ML/MIN (>89); GLUCOSE,FASTING 85 MG/DL (74-99); MAGNESIUM 2.4 MG/DL (1.5-2.5); SODIUM (NA) 141 MEQ/L (136-145)
[2018-04-02 10:57] LABS: TRIGLYCERIDES 78 MG/DL (42-150)
[2018-04-02 11:23] LABS: ALKALINE PHOSPHATASE 85 U/L (45-117); ALT (GPT) 20 U/L (10-53); CHOLESTEROL/ HDL RATIO 2.69 RATIO; FERRITIN 603 NG/ML (8-252); HDL CHOLESTEROL 62.8 MG/DL (40.0-60.0); IRON (FE) 67 MCG/DL (50-170); LDL CHOLESTEROL 91 MG/DL (0-99); TOTAL BILIRUBIN ADULT 0.4 MG/DL (0.2-1.0); TOTAL PROTEIN 8.1 GM/DL (6.4-8.2)
[2018-04-02 11:24] LABS: FOLATE GREATER THAN 20.0 NG/ML (3.1-17.5)
== END ==
LOC: CLAB 09:17
DX: E46 Unspecified protein-calorie malnutrition (principal); Z13.29 Encounter for screening for other suspected endocrine disorder
CPT/HCPCS: 36415; 80053; 80061; 82607; 82652; 82728; 82746; 83036; 83540; 83735; 84134; 84207; 84425; 84443; 84466; 84590; 84630; 85027